=== PATIENT | male | born 1960 | race Caucasian/White ===

== ENCOUNTER → 2016-09-09 | Outpatient (CLI) | payer BC ==
[~2016-09-09] MED LIST: AMOXICILLIN 8751 TAB PO; CIPRO 500MG TA500 MG PO; LISINOPRIL HCTZ1 TAB PO; OMEPRAZOLE DR20 MG PO
== END ==
LOC: LAB 17:18
DX: L02.92 Furuncle, unspecified (principal); B95.7 Other staphylococcus as the cause of diseases classified elsewhere; B96.89 Other specified bacterial agents as the cause of diseases classified elsewhere

== ENCOUNTER 2017-10-01 15:33 | Emergency (ER) | payer BC ==
[~2017-10-01] VITALS: Ht 190.5 cm; Wt 161.8 kg
[~2017-10-01 15:33] MED LIST changes: -ADVAIR DISKUS1 DS2 IH; -FUROSEMIDE20 MG PO; -PROAIR HFA0.09 MG/AC IH; -SINGULAIR 110 MG/TAB PO
[2017-10-01] MEDS ORDERED: FUROSEMIDE20 MG PO (16:09)
[2017-10-01] MEDS ORDERED: ADVAIR DISKUS1 DS2 IH (16:10)
[2017-10-01] MEDS ORDERED: PROAIR HFA0.09 MG/AC IH (16:10)
[2017-10-01] MEDS ORDERED: SINGULAIR 110 MG/TAB PO (16:10)
[2017-10-01 16:38] LABS: HEMOGLOBIN 12.1 g/dL (13.5-18.0); MEAN CELL VOLUME 83 fl (78-100); MEAN CORPUSCULAR HEMOGLOBIN 27 pg (27-31); MEAN CORPUSCULAR HGB CONC 32 g/dL (33-37); MEAN PLATELET VOLUME 10.8 fl (7.4-10.4); PLATELET COUNT 123 K/mm3 (130-400); RED BLOOD COUNT 4.56 M/mm3 (4.20-5.60); RED CELL DISTRIBUTION WIDTH 18.2 % (11.5-14.5); WHITE BLOOD COUNT 6.4 K/mm3 (4.8-10.8)
[2017-10-01 16:43] LABS: ALBUMIN 3.9 g/dL (3.5-5.0); BUN/CREATININE RATIO 11.4 (6.0-26.0); CALCIUM 8.6 mg/dL (8.4-10.2); POTASSIUM 3.2 mmol/L (3.6-5.0); TOTAL BILIRUBIN 1.1 mg/dL (0.2-1.3); TOTAL PROTEIN 8.1 g/dL (6.3-8.2)
[2017-10-01 16:48] LABS: D-DIMER 0.51 mg/L FEU (0.15-0.50)
[2017-10-01 17:06] LABS: LYMPHOCYTE 15 % (20-51); MONOCYTE 16 % (3-10); NEUTROPHILS 68 % (42-75); TROPONIN-I < 0.03 ng/mL (0.00-0.06)
[2017-10-01 18:04] LABS: URINE APPEARANCE CLOUDY; URINE BILIRUBIN 1+ (NEGATIVE); URINE COLOR DK YELLOW; URINE GLUCOSE NEGATIVE (NEGATIVE); URINE KETONE 1+ (NEGATIVE); URINE NITRATE NEGATIVE (NEGATIVE); URINE PROTEIN(semi-quant) TRACE mg/dL (NEGATIVE); URINE UROBILINOGEN 8 mg/dL (NORMAL)
[2017-10-01 18:05] LABS: URINE BLOOD TRACE (NEGATIVE); URINE LEUKOCYTE ESTERASE TRACE (NEGATIVE); URINE MUCUS PRESENT (NOT PRESENT)
[2017-10-01 19:29] VITALS: BP 131/64
== END 2017-10-01 19:58 | disposition short-term general hospital (02) ==
LOC: ED 15:33
PROVIDERS: Physician Assistant
DX: I48.91 Unspecified atrial fibrillation (principal); J18.9 Pneumonia, unspecified organism; F10.20 Alcohol dependence, uncomplicated; K74.60 Unspecified cirrhosis of liver; J45.909 Unspecified asthma, uncomplicated; K21.9 Gastro-esophageal reflux disease without esophagitis; F17.210 Nicotine dependence, cigarettes, uncomplicated
CPT/HCPCS: J0696; J1650; J3490; J7030; J7050; Q9967

== ENCOUNTER → 2017-10-01 | Outpatient (CLI) | payer BC ==
[~2017-10-01] VITALS: Ht 190.5 cm; Wt 159.1 kg
[~2017-10-01] MED LIST changes: +ADVAIR DISKUS1 DS2 IH; +FUROSEMIDE20 MG PO; +PROAIR HFA0.09 MG/AC IH; +SINGULAIR 110 MG/TAB PO
[2017-10-01 15:33] VITALS: BP 117/73
== END ==
LOC: AMSURD 15:05
DX: R05 Cough (principal); I49.9 Cardiac arrhythmia, unspecified

== ENCOUNTER → 2017-10-22 | Outpatient (CLI) | payer BC ==
[2017-10-01 19:29] VITALS: BP 131/64
[~2017-10-22] MED LIST changes: +ADVAIR DISKUS1 DS2 IH; +FUROSEMIDE20 MG PO; +PROAIR HFA0.09 MG/AC IH; +SINGULAIR 110 MG/TAB PO
[2017-10-22 09:29] LABS: BUN/CREATININE RATIO 12.8 (6.0-26.0); CALCIUM 8.6 mg/dL (8.4-10.2); POTASSIUM 3.7 mmol/L (3.6-5.0)
[2017-10-22 09:36] LABS: EOS # 0.1 (0.04-0.40); HEMATOCRIT 36.7 % (42.0-52.0); HEMOGLOBIN 11.1 g/dL (13.5-18.0); LYMPH# 1.6 (1.50-4.00); MEAN CELL VOLUME 88 fl (78-100); MEAN CORPUSCULAR HEMOGLOBIN 27 pg (27-31); MEAN CORPUSCULAR HGB CONC 30 g/dL (33-37); MEAN PLATELET VOLUME 10.9 fl (7.4-10.4); MONO # 0.7 (0.20-0.80); NEU # 3.7 (1.40-6.50); PLATELET COUNT 136 K/mm3 (130-400); RED BLOOD COUNT 4.15 M/mm3 (4.20-5.60); RED CELL DISTRIBUTION WIDTH 19.7 % (11.5-14.5); WHITE BLOOD COUNT 6.1 K/mm3 (4.8-10.8)
[2017-10-22 10:34] LABS: DIGOXIN 0.8 ng/mL (0.8-2.0)
== END ==
LOC: RAD 08:47
PROVIDERS: Nurse Practitioner Family
DX: J18.9 Pneumonia, unspecified organism (principal); I48.91 Unspecified atrial fibrillation; K70.30 Alcoholic cirrhosis of liver without ascites; I10 Essential (primary) hypertension

== ENCOUNTER → 2017-10-23 | Outpatient (CLI) | payer BC ==
[2017-10-01 19:29] VITALS: BP 131/64
== END ==
LOC: LAB 09:31
PROVIDERS: Nurse Practitioner Family
DX: D64.9 Anemia, unspecified (principal); K74.60 Unspecified cirrhosis of liver; Z88.8 Allergy status to other drugs, medicaments and biological substances

== ENCOUNTER → 2017-10-26 | Outpatient (CLI) | payer BC ==
[2017-10-01 19:29] VITALS: BP 131/64
== END ==
LOC: LAB 07:48
DX: D64.9 Anemia, unspecified (principal); K70.30 Alcoholic cirrhosis of liver without ascites; Z88.8 Allergy status to other drugs, medicaments and biological substances

== ENCOUNTER → 2017-11-12 | Day surgery (SDC) | payer BC | LOC: MSO 07:08 | DX: K31.9 Disease of stomach and duodenum, unspecified (principal); D64.9 Anemia, unspecified; K70.30 Alcoholic cirrhosis of liver without ascites; K57.30 Diverticulosis of large intestine without perforation or abscess without bleeding; K63.5 Polyp of colon; K31.7 Polyp of stomach and duodenum; Z88.8 Allergy status to other drugs, medicaments and biological substances; G47.33 Obstructive sleep apnea (adult) (pediatric); F17.210 Nicotine dependence, cigarettes, uncomplicated; J45.909 Unspecified asthma, uncomplicated; F10.10 Alcohol abuse, uncomplicated; I10 Essential (primary) hypertension; I48.91 Unspecified atrial fibrillation | CPT/HCPCS: 00813; A4649; J2704; J3010; J7120 ==

== ENCOUNTER → 2017-11-26 | Outpatient (CLI) | payer BC ==
[2017-11-26 18:59] LABS: HEMATOCRIT 34.8 % (42.0-52.0); HEMOGLOBIN 11.1 g/dL (13.5-18.0); MEAN PLATELET VOLUME 11.3 fl (7.4-10.4); RED BLOOD COUNT 3.94 M/mm3 (4.20-5.60); RED CELL DISTRIBUTION WIDTH 19.4 % (11.5-14.5); WHITE BLOOD COUNT 6.5 K/mm3 (4.8-10.8)
[2017-11-26 19:19] LABS: ALBUMIN 3.6 g/dL (3.5-5.0); BUN/CREATININE RATIO 15.5 (6.0-26.0); CALCIUM 8.8 mg/dL (8.4-10.2); POTASSIUM 3.3 mmol/L (3.6-5.0); TOTAL BILIRUBIN 0.7 mg/dL (0.2-1.3); TOTAL PROTEIN 7.2 g/dL (6.3-8.2)
== END ==
LOC: LAB 17:05
PROVIDERS: Nurse Practitioner Family
DX: I48.0 Paroxysmal atrial fibrillation (principal); D64.9 Anemia, unspecified; I86.4 Gastric varices; K70.30 Alcoholic cirrhosis of liver without ascites; I10 Essential (primary) hypertension; Z86.39 Personal history of other endocrine, nutritional and metabolic disease; Z88.8 Allergy status to other drugs, medicaments and biological substances

== ENCOUNTER 2018-09-21 07:11 | Inpatient (IN) | payer BC ==
[~2018-09-21] VITALS: Ht 190.5 cm; Wt 172.4 kg
[2018-09-21] MEDS ORDERED: POTASSIUM CHLO20 ME4 PO (07:39)
[2018-09-21] MEDS ORDERED: VITAMIN C500 M6 PO (07:40)
[2018-09-21 08:06] LABS: HEMATOCRIT 37.8 % (42.0-52.0); HEMOGLOBIN 12.3 g/dL (13.5-18.0); MEAN CELL VOLUME 87 fl (78-100); MEAN CORPUSCULAR HEMOGLOBIN 28 pg (27-31); MEAN CORPUSCULAR HGB CONC 33 g/dL (33-37); MEAN PLATELET VOLUME 11.7 fl (7.4-10.4); PLATELET COUNT 94 K/mm3 (130-400); RED BLOOD COUNT 4.35 M/mm3 (4.20-5.60); RED CELL DISTRIBUTION WIDTH 18.2 % (11.5-14.5); WHITE BLOOD COUNT 6.4 K/mm3 (4.8-10.8)
[2018-09-21 08:13] LABS: ALBUMIN 3.9 g/dL (3.5-5.0); CALCIUM 8.5 mg/dL (8.4-10.2); POTASSIUM 3.3 mmol/L (3.6-5.0); TOTAL BILIRUBIN 1.7 mg/dL (0.2-1.3); TOTAL PROTEIN 7.6 g/dL (6.3-8.2)
[2018-09-21 08:37] LABS: LYMPHOCYTE 9 % (20-51); MONOCYTE 5 % (3-10); NEUTROPHILS 85 % (42-75)
[2018-09-21 08:59] LABS: D-DIMER 0.8 mg/L FEU (0.15-0.50)
[2018-09-21 10:29] VITALS: BP 130/68
--- NOTE | 2018-09-21 10:30 | NUR ---
pt admitted acute to room 206. Pt alert oriented and denies any pain. Labored breathing and complaints of SOB. Lungs coarse throughout. Pt does not tolerate nasal cannula well as he is a mouth breather. Pt has simple mask on at 4L remains 92%. Significant other goes home to get pt c pap machine.
[2018-09-21 12:08] VITALS: BP 143/62
--- NOTE | 2018-09-21 12:19 | NUR ---
Pt sitting up on edge of bed eating lunch. Pt switched to nasal cannula for meal pt SP02 remains mid 80s on 6L nasal cannula while sitting up eating. Heart rate in the 120s
--- NOTE | 2018-09-21 13:33 | NUR ---
pt oxygen increased to 6L via simple mask to keep SP02 92%. Dr Grace notfied and at bedside
[2018-09-21] MEDS ORDERED: SINGULAIR 110 MG/TAB PO (13:56)
[2018-09-21] MEDS ORDERED: DOXYCYCLINE MO100 M3 PO (13:57)
[2018-09-21] MEDS ORDERED: METOPROLOL TAR100 M1 PO (13:58)
[2018-09-21] MEDS ORDERED: TESSALON PERLE100 M1 PO (13:58)
[2018-09-21] MEDS ORDERED: LASIX80 M1 PO (13:59)
[2018-09-21 14:54] VITALS: BP 135/85
--- NOTE | 2018-09-21 15:20 | NUR ---
CARDIZEM DRIP RATE INCREASED TO 10 MG/HR
--- NOTE | 2018-09-21 17:00 | NUR ---
Pt started on bipap per Dr. Grace as pt remains 87% on 6L via simple mask. Pt SP02 increases to 91% on bipap. Pt tolerates well. Says he feels much better. Agrees to lay back and relax
--- NOTE | 2018-09-21 17:00 | NUR ---
Pt cardizem drip decreased 5mg/hr d/t blood pressures
--- NOTE | 2018-09-21 18:22 | NUR ---
Pt SP02 had been 87-91% wiht 6L bled into bipap. Dr. Grace orders to increase oxygen bleed in to 8L. No change noted in Sp02 with this increase
--- NOTE | 2018-09-21 19:55 | NUR ---
Cardizem drip decreased to 2.5mg due to heart rate 89 and B/P=118/72.
[2018-09-21 20:11] VITALS: BP 109/77
--- NOTE | 2018-09-21 22:38 | NUR ---
Cardizem drip stooped at this time pulse=74 and B/P= 111/82
[2018-09-22] VITALS (7 sets, daily range): BP systolic 97–135; BP diastolic 53–72
--- NOTE | 2018-09-22 02:27 | NUR ---
Assessed pt he denies any pain or discomfort. Rechecked B/P= 92/41, pt denies any dizziness.
--- NOTE | 2018-09-22 06:14 | NUR ---
Pt here for respitory failure. Pt is on BIPAP with IPAP=12, IPAP= 7 with 8L O2 attached to BIPAP. Pt has INT in Rt AC. IV Cardizem was stopped at 2238 pulse is able to maintaine at 70-80. Pt offeres no complints of pain during this shift. Pt rest in bed during the night. Does complaine about not being feed. Nursing staff attempted to let pt eat per doctor orders but pt was unable to maintaine O2 stats with out the BIPAP on.
--- NOTE | 2018-09-22 07:00 | NUR ---
Report received from YESENIA Menjivar.
--- NOTE | 2018-09-22 08:00 | NUR ---
Pt awake and wanting breakfast. Bipap off as pt would like to eat. 02 at 6 L/NC - sp02 88-92%. Pt sitting on side of bed - Desats to 80's with activity. Lungs clear at this time but diminished. No wheezes heard at this time. Call light in reach. Denies any pain. INT intact right AC. Resp labored w/ exertion.
--- NOTE | 2018-09-22 08:30 | NUR ---
Sats do desat to 86% w/ talking and eating but return to low 90's in a short time w/ rest from activity. Will continue to monitor. Pt verbalizes understanding to keep sats around 92% or better on the 6L/NC - encouraged to breath throught nose when using nasal cannula.
[2018-09-22 08:41] LABS: HEMOGLOBIN 11.6 g/dL (13.5-18.0); MEAN CELL VOLUME 88 fl (78-100); MEAN CORPUSCULAR HEMOGLOBIN 28 pg (27-31); MEAN CORPUSCULAR HGB CONC 32 g/dL (33-37); MEAN PLATELET VOLUME 11.6 fl (7.4-10.4); PLATELET COUNT 108 K/mm3 (130-400); RED CELL DISTRIBUTION WIDTH 17.6 % (11.5-14.5); WHITE BLOOD COUNT 8.5 K/mm3 (4.8-10.8)
[2018-09-22 08:46] LABS: CALCIUM 8.4 mg/dL (8.4-10.2); POTASSIUM 3.7 mmol/L (3.6-5.0)
[2018-09-22 09:17] LABS: LYMPHOCYTE 4 % (20-51); NEUTROPHILS 95 % (42-75)
[2018-09-22 09:18] LABS: MONOCYTE 1 % (3-10)
--- NOTE | 2018-09-22 09:45 | NUR ---
After breathing treatments heard expiratory wheezes bilaterally. Encouraged to use IS and importance explained - after instruction pt demonstrates IS use correctly. Pt continues to sit on side of bed. BIPAP to be replaced if pt decides to lie down or sp02 does not maintain - pt verbalizes understanding. States is coughing up white sputum.
--- NOTE | 2018-09-22 10:30 | NUR ---
Significant other is here. Pt continues 6 L/NC w/ sp02 88-92%. Pt's sats to 78% without oxygen as was changing shirt and reapplying tubing. Notable SOB with this. 02 reapplied at 6 L/NC and up to 91-92% in short time. Washes off with bath wipes instead of shower today.
--- NOTE | 2018-09-22 11:30 | NUR ---
Dr. Grace updated on sp02 on 6L/NC - no new orders. Monitor shows RSR w/ pac much of the time today. Occasional atrial fib at times but difficult to confirm w/ pacs at times. Pt remains on side of bed. Dr. Grace notified of tea colored/gene urine this am.
--- NOTE | 2018-09-22 14:00 | NUR ---
Pt brushes teeth at bedside and walks around bed to recliner at bedside w/ 02 at 6 L/NC w/ SP02 dropping to 73%. Pt back up to 90-92% w/ rest and breathing in through nose. Offered BIPAP and pt refuses. Has visitor.
--- NOTE | 2018-09-22 14:30 | NUR ---
Dr. Grace aware that eliquis dose given last night and no scheduled dose for this am. No new orders at this time.
--- NOTE | 2018-09-22 14:35 | NUR ---
To XRAY per w/c / at 6L/NC.
--- NOTE | 2018-09-22 15:37 | NUR ---
Sitting in chair at bedside watching TV. Sp02 91-93% w/ 92 at 6 L/NC.
--- NOTE | 2018-09-22 17:48 | NUR ---
Dr. Grace notified of significant other's concern for not much response from lasix as usually has at home. Pt continues oxygen at 6 L/nc this shift. Monitor continues to show rsr w/ feq pac's rates 80-90's. Pt has not taken a nap since rising this am. Discussed BIPAP use tonight with sleeping (uses cpap at home). C/O sore throat - appears irritated and has had sinus drainage. Order for cepacol obtained and lozenge given to pt.
--- NOTE | 2018-09-22 19:39 | NUR ---
Report received from Ashley PATTERSON. Up in chair with oxygen in place at 6L/NC. SAO2 88-90% per NC. RR non-labored at this time. Labored with exertion. Lungs coarse with expiratory wheezes all pre[place]. States has a sore throat, utilizing cepacol lozenges and request more. Assessment completed. Denies pain, except throat.
--- NOTE | 2018-09-23 00:02 | NUR ---
Oxygen levels dipping down to 87-88% on 6L bleed in with BIPAP. Oxygen increase to 8L/bleed in. SAO2 90-93%.
[2018-09-23 03:15] VITALS: BP 101/55
--- NOTE | 2018-09-23 04:24 | NUR ---
Has been resting well past 3 1/2 hours. SAO2 maintained at 93% while asleep with BIPAP in place and oxgyen bled in at 8L. Desats down to mid-80s with activity or manipulation of mask.
[2018-09-23 06:21] VITALS: BP 103/50
--- NOTE | 2018-09-23 07:28 | NUR ---
Report to Shoshana PATTERSON.
[2018-09-23 07:32] LABS: ALBUMIN 3.3 g/dL (3.5-5.0); CALCIUM 8.5 mg/dL (8.4-10.2); POTASSIUM 3.8 mmol/L (3.6-5.0); TOTAL BILIRUBIN 0.6 mg/dL (0.2-1.3); TOTAL PROTEIN 6.9 g/dL (6.3-8.2)
[2018-09-23 07:39] LABS: HEMATOCRIT 35.8 % (42.0-52.0); HEMOGLOBIN 11.1 g/dL (13.5-18.0); MEAN CELL VOLUME 88 fl (78-100); MEAN CORPUSCULAR HEMOGLOBIN 27 pg (27-31); MEAN CORPUSCULAR HGB CONC 31 g/dL (33-37); PLATELET COUNT 115 K/mm3 (130-400); RED BLOOD COUNT 4.07 M/mm3 (4.20-5.60); RED CELL DISTRIBUTION WIDTH 17.5 % (11.5-14.5)
[2018-09-23 08:01] LABS: MEAN PLATELET VOLUME 12.4 fl (7.4-10.4)
[2018-09-23 08:51] LABS: BAND 1 % (0-10); LYMPHOCYTE 4 % (20-51); MONOCYTE 2 % (3-10); NEUTROPHILS 93 % (42-75)
[2018-09-23 11:56] VITALS: BP 118/70
[2018-09-23 15:50] VITALS: BP 111/71
[2018-09-23 20:14] VITALS: BP 121/73
--- NOTE | 2018-09-23 20:50 | NUR ---
Report received from Chantel PATTERSON. Up in recliner. Oxygen in place at 6L/NC. SAO2 96-97%. Denies shortness of breath at rest but continue with SOB with exertion. States occasional NPC.HR 90's regular. Lung sounds improved from last nights assessment. No wheezes auscultated and better airation noted. Diminished in bases. INT patent to R AC. Flushed easily with NS. States no BM as of yet. Wants laxative tomorrow if no movement. HS medications and nebulizer tx administerd. Denies wants or needs.
[2018-09-23 23:35] VITALS: BP 128/70
--- NOTE | 2018-09-24 00:01 | NUR ---
SAO2 88-92% with inital placement of BIPAP. Once patient settles into sleep SAO2 steady 94%. BIPAP with oxgyen bled in a 6L.
[2018-09-24 02:49] VITALS: BP 116/80
--- NOTE | 2018-09-24 03:35 | NUR ---
SAO2 had remained 93-95% with BIPAP on with 6L bleed in oxgyen. Occasional brief dips into high 80's with repositioning while sleeping.
--- NOTE | 2018-09-24 06:17 | NUR ---
Awake for the day. BIPAP off. Oxygen applied at 6L/NC. SAO2 92%.
[2018-09-24 06:33] VITALS: BP 133/77
--- NOTE | 2018-09-24 06:56 | NUR ---
Takes oxygen out of nose and puts in mouth during trying to blow his nose. SAO2 down to 83%.
--- NOTE | 2018-09-24 07:12 | NUR ---
Dr. Castaneda at bedside.
--- NOTE | 2018-09-24 07:12 | NUR ---
Dr. Castaneda in to round on patient.
--- NOTE | 2018-09-24 07:27 | NUR ---
Report to Chantel PATTERSON.
[2018-09-24 11:00] VITALS: BP 139/81
[2018-09-24 15:00] VITALS: BP 142/83
--- NOTE | 2018-09-24 15:30 | NUR ---
Patient alert and oriented. Denies pain. Has intermittent productive cough. Has small amount of white sputum per patient. Oxygen saturations in mid 90's on oxygen at 6 liters via nasal cannula. Oxygen decreased to 5 liters. Oxygen saturations >90% at rest. Decreased to 85% with minimal exertion on oxygen at 5 liters via nasal cannula. Patient reports no bowel movement since 09/21/18. Bowel sounds hypoactive x4. Drank two large cups of prune juice this morning. Served chilled per patient request. Denies need for PRN suppository at this time. Denies needs or questions. Fall precautions in place.
--- NOTE | 2018-09-24 18:30 | NUR ---
Patient ambulated in hallway >150 feet. Oxygen on 6 liters via nasal cannula. Had patient stop and rest twice during ambulation due to decreasing oxygen saturations to mid-lower 80's. Patient wanted to continue with no rest periods. Denies dizziness or shortness of breath with ambulation. States he "couldn't tell" his oxygen saturations were low. Denies symptoms. Steady gait noted. Returns to recliner. Oxygen decreased to 5 liters via nasal cannula. Denies pain or needs. Fall precautions in place.
[2018-09-24 18:54] VITALS: BP 150/81
[2018-09-24 23:10] VITALS: BP 149/78
[2018-09-25 03:20] VITALS: BP 145/72
--- NOTE | 2018-09-25 05:30 | NUR ---
Patient is awake this am, BIPAP removed and switched back to oxygen at 5L/NC at this time, states he slept well last night, wore the BIPAP nonstop for 7 hours without difficulty. Is requesting a cup of coffee, provided. Sitting up in bed watching tv, call light within reach, bed alarm on, denies any further needs/complaints at this time, monitor shows normal sinus rhythm, sats 92-93% on the oxygen.
[2018-09-25 06:03] LABS: CALCIUM 8.4 mg/dL (8.4-10.2); POTASSIUM 4.1 mmol/L (3.6-5.0)
[2018-09-25 06:06] VITALS: BP 148/73
--- NOTE | 2018-09-25 07:15 | NUR ---
Bedside shift report given to Janet at this time, patient sitting up in bed watching tv with oxygen on per nasal cannula @ 5L/NC, call light within reach, bed alarm on, side rails up x 2, patient denies any needs/complaints at this time
[2018-09-25 11:09] VITALS: BP 143/84
[2018-09-25 15:00] VITALS: BP 153/76
[2018-09-25 15:47] LABS: HEMATOCRIT 37.9 % (42.0-52.0); HEMOGLOBIN 11.7 g/dL (13.5-18.0); MEAN CELL VOLUME 89 fl (78-100); MEAN CORPUSCULAR HEMOGLOBIN 27 pg (27-31); MEAN CORPUSCULAR HGB CONC 31 g/dL (33-37); MEAN PLATELET VOLUME 11.9 fl (7.4-10.4); PLATELET COUNT 124 K/mm3 (130-400); RED BLOOD COUNT 4.27 M/mm3 (4.20-5.60); RED CELL DISTRIBUTION WIDTH 17.6 % (11.5-14.5); WHITE BLOOD COUNT 7.9 K/mm3 (4.8-10.8)
[2018-09-25 16:03] LABS: CALCIUM 8.4 mg/dL (8.4-10.2); POTASSIUM 4.5 mmol/L (3.6-5.0)
[2018-09-25 16:12] LABS: LYMPHOCYTE 10 % (20-51); MONOCYTE 6 % (3-10); NEUTROPHILS 84 % (42-75)
--- NOTE | 2018-09-25 16:48 | NUR ---
PT DESATS TO 88% ON 6L 02 VIA NC WHILE IN THE RESTROOM SITTING ON THE COMMODE, ASSISTED BACK TO CHAIR SAFELY, CURRENTLY O2 SATURATION IS 90% ON 6L NC WHILE RESTING
--- NOTE | 2018-09-25 16:53 | NUR ---
PT WALKS TO AND FROM RESTROOM AT THIS TIME, UPON GETTING BACK INTO CHAIR AND STARTING BREATHING TX PT'S O2 SATURATION IS 86% ON 6L O2 VIA NC
--- NOTE | 2018-09-25 17:30 | NUR ---
PER PATIENT HE DOES NOT WANT TO GO HOME ON OXYGEN AND WOULD LIKE TO CONTINUE TO STAY UNTIL NO LONGER NEEDS OXYGEN. PATIENT AGREES TO DECREASE OXYGEN SLOWLY TO SEE HOW HE TOLERATES. PATIENT HAD ANOTHER CHEST XRAY TODAY; RESULTS PENDING. PATIENT TOLERATING DECREASE TO 4L NC THIS AFTERNOON WITH SATS 92%. PATIENT AMBULATORY TO BATHROOM AND UP AROUND ROOM WITH STANDBY ASSIST. PATIENT WOULD LIKE TO WALK THIS EVENING AND CONTINUE TO MOVE TO GET BOWELS MOVING. PATIENT GIVEN A SUPPOSITORY AND WOULD LIKE TO START MIRALAX IN THE AM. SMALL BM NOTED AND CHARTED THIS AFTERNOON.
[2018-09-25 18:11] VITALS: BP 131/72
--- NOTE | 2018-09-25 20:00 | NUR ---
Patient ambulates in the halls with nurse, Standby assist with gait belt, oxygen on at 4L/NC, sats monitored throughout walk, patient was able to walk all the way around the loop with 3 stops to rest and take some deep breaths, sats never dropped below 87% during ambulation, gait steady, patient able to converse with nurse most of the time, ambulates back to room and placed back on wall oxygen, chair alarm activated and call light within reach, patient denies any needs/complaints at this time
[2018-09-25 22:44] VITALS: BP 136/74
[2018-09-26 02:40] VITALS: BP 109/70
[2018-09-26 06:25] VITALS: BP 129/77
--- NOTE | 2018-09-26 06:30 | NUR ---
Patient wakes up, ambulates to the bathroom and back to bed with contact guard assist, oxygen switched from BIPAP to nasal cannula at 4L, he wore the BIPAP for a full 8 hours last night without difficulty, resting quietly in bed at this time, side rails up x 2, call light within reach, bed alarm on
--- NOTE | 2018-09-26 09:49 | NUR ---
Pt sitting up in chair. Is A&O, denies pain. O2 at 4L via NC. INT to R hand, causes pain immediately upon flushing then flushes and infuses without issue. Lungs CTA, pt does have intermittent productive cough, especially after bx tx. Noted to have generalized edema through all extremeties with 2+ to BLE which pt reports being his "normal", once up for the day.
[2018-09-26 11:28] VITALS: BP 108/70
--- NOTE | 2018-09-26 13:12 | NUR ---
PT'S O2 SATURATION BETWEEN 88%-89% WITH AMBULATION IN THE HALLWAYS AT THIS TIME ON 4L O2 VIA NC
--- NOTE | 2018-09-26 15:00 | NUR ---
Pt lying in bed, resting. HOB 45 degrees. Turn off O2. Desats to 83% RA but does recover in waves back up to 93%. Leave off x 10 minutes, then return to 3L O2 via NC. Pt maintaining 92%.
[2018-09-26 15:15] VITALS: BP 115/68
[2018-09-26 18:42] VITALS: BP 119/73
--- NOTE | 2018-09-26 18:50 | NUR ---
Pt refuses HH services and OP therapy at this time. He accepts being set up w/ Home O2 and chooses [facility], records are received by [facility] and they will set up home O2 and provide an O2 bleeder for his current C-PAP machine. Pt will also go home w/ mask that he has been using in hospital.
--- NOTE | 2018-09-26 19:30 | NUR ---
Report received from Shoshana PATTERSON. Up in recliner with visitor at bedside. A/O x4. Oxygen in place at 3L/NC. SAO2 93%. Denies pain. Denies Shortness of breath at rest. States he "coughed up a little brownish phelgm". INT patent to R hand. Assessment completed. Denies wants or needs at this time.
[2018-09-26 23:16] VITALS: BP 136/71
--- NOTE | 2018-09-27 01:38 | NUR ---
Oxygen levels have remained 93-94% on 4L bleed in to CPAP.
[2018-09-27 03:07] VITALS: BP 133/71
[2018-09-27 06:25] VITALS: BP 122/67
[2018-09-27 06:50] LABS: HEMATOCRIT 36.5 % (42.0-52.0); HEMOGLOBIN 11.4 g/dL (13.5-18.0); MEAN CELL VOLUME 88 fl (78-100); MEAN CORPUSCULAR HEMOGLOBIN 28 pg (27-31); MEAN CORPUSCULAR HGB CONC 31 g/dL (33-37); MEAN PLATELET VOLUME 11.5 fl (7.4-10.4); PLATELET COUNT 152 K/mm3 (130-400); RED BLOOD COUNT 4.15 M/mm3 (4.20-5.60); RED CELL DISTRIBUTION WIDTH 17.7 % (11.5-14.5); WHITE BLOOD COUNT 9.2 K/mm3 (4.8-10.8)
--- NOTE | 2018-09-27 06:52 | NUR ---
Report to Anh PATTERSON
[2018-09-27 07:06] LABS: CALCIUM 8.2 mg/dL (8.4-10.2); POTASSIUM 4.4 mmol/L (3.6-5.0)
[2018-09-27] MEDS ORDERED: IPRATROPIUM BROM3 M1 IH (07:34)
[2018-09-27] MEDS ORDERED: PREDNISONE10 MG PO (07:36)
[2018-09-27] MEDS ORDERED: CEFDINIR300 MG PO (07:38)
[2018-09-27 07:39] LABS: LYMPHOCYTE 7 % (20-51); MONOCYTE 7 % (3-10); NEUTROPHILS 86 % (42-75)
[2018-09-27] MEDS ORDERED: DOXYCYCLINE MO100 M3 PO (07:40)
--- NOTE | 2018-09-27 08:12 | NUR ---
REPORT GIVEN TO KAYCEE Pratt RN.
--- NOTE | 2018-09-27 09:17 | NUR ---
Discharge instructions reviewed with pt and girl friend at bedside. Both verbalize understanding. Significant other Bethany reports that they already have some doxcycline and breathing treatments at home and they do not need them. Both encouraged to check prescriptions to ensure it is actually the same medications and doses and that they will have enough. Pt leaves with home oxygen tank and supplies for oxygen as well as bipap mask and connections for oxygen adapters to his c pap machine. Eduaction provided on importance of oxygen and following medications regimen as ordered. Both verbalize understanding. Assisted out in wheel chair at this time
== END 2018-09-27 09:17 | disposition home or self-care (01) | DRG 193 ==
LOC: ED 07:11 → MED/SURG 09:42
PROVIDERS: Internal Medicine; Physician Assistant; ADMIT Family Medicine
DX: J18.9 Pneumonia, unspecified organism (principal); I50.23 Acute on chronic systolic (congestive) heart failure; Z68.42 Body mass index [BMI] 45.0-49.9, adult; K70.30 Alcoholic cirrhosis of liver without ascites; I48.91 Unspecified atrial fibrillation; K21.9 Gastro-esophageal reflux disease without esophagitis; E66.01 Morbid (severe) obesity due to excess calories; F17.210 Nicotine dependence, cigarettes, uncomplicated; E87.6 Hypokalemia; F10.10 Alcohol abuse, uncomplicated; G47.33 Obstructive sleep apnea (adult) (pediatric)
CPT/HCPCS: A4216; J0696; J1650; J1940; J2930; J3490; J7050

== ENCOUNTER → 2018-10-08 | Outpatient (CLI) | payer BC ==
[2018-09-27 06:25] VITALS: BP 122/67
[~2018-10-08] MED LIST changes: +CEFDINIR300 MG PO; +DOXYCYCLINE MO100 M3 PO; +IPRATROPIUM BROM3 M1 IH; +LASIX80 M1 PO; +METOPROLOL TAR100 M1 PO; +POTASSIUM CHLO20 ME4 PO; +PREDNISONE10 MG PO; +TESSALON PERLE100 M1 PO; +VITAMIN C500 M6 PO
[2018-10-08 11:47] LABS: EOS # 0.1 (0.04-0.40); EOS % 1.3 % (0.0-4.0); HEMATOCRIT 42.8 % (42.0-52.0); HEMOGLOBIN 13.4 g/dL (13.5-18.0); LYMPH# 1.9 (1.50-4.00); MEAN CELL VOLUME 90 fl (78-100); MEAN CORPUSCULAR HEMOGLOBIN 28 pg (27-31); MEAN CORPUSCULAR HGB CONC 31 g/dL (33-37); MONO # 0.9 (0.20-0.80); NEU # 6.6 (1.40-6.50); PLATELET COUNT 134 K/mm3 (130-400); RED BLOOD COUNT 4.78 M/mm3 (4.20-5.60); RED CELL DISTRIBUTION WIDTH 19.9 % (11.5-14.5); WHITE BLOOD COUNT 9.7 K/mm3 (4.8-10.8)
[2018-10-08 12:02] LABS: ALBUMIN 3.8 g/dL (3.5-5.0); CALCIUM 8.9 mg/dL (8.4-10.2); POTASSIUM 3.8 mmol/L (3.6-5.0); TOTAL BILIRUBIN 1.9 mg/dL (0.2-1.3); TOTAL PROTEIN 7.3 g/dL (6.3-8.2)
== END ==
LOC: LAB 11:30
PROVIDERS: Family Medicine
DX: E87.6 Hypokalemia (principal); D64.9 Anemia, unspecified

== ENCOUNTER → 2019-02-25 | Outpatient (CLI) | payer BC ==
[2019-02-25 15:15] LABS: PROTHROMBIN TIME 12.1 SECONDS (9.0-12.0)
== END ==
LOC: LAB 14:44
PROVIDERS: Physician Assistant
DX: K74.60 Unspecified cirrhosis of liver (principal); F10.10 Alcohol abuse, uncomplicated

== ENCOUNTER → 2019-08-04 | Outpatient (CLI) | payer BC | LOC: RAD 15:55 | DX: M77.32 Calcaneal spur, left foot (principal) ==

== ENCOUNTER 2020-08-13 10:05 | Inpatient (IN) | payer BC ==
[~2020-08-13] VITALS: Ht 190.5 cm; Wt 174.0 kg
[2020-08-13 11:32] LABS: HEMATOCRIT 39.8 % (42.0-52.0); HEMOGLOBIN 13.5 g/dL (13.5-18.0); MEAN CELL VOLUME 104 fl (78-100); MEAN CORPUSCULAR HEMOGLOBIN 35 pg (27-31); MEAN CORPUSCULAR HGB CONC 34 g/dL (33-37); MEAN PLATELET VOLUME 11.5 fl (7.4-10.4); PLATELET COUNT 70 K/mm3 (130-400); RED BLOOD COUNT 3.82 M/mm3 (4.20-5.60); RED CELL DISTRIBUTION WIDTH 12.8 % (11.5-14.5); WHITE BLOOD COUNT 5.1 K/mm3 (4.8-10.8)
[2020-08-13 11:43] LABS: ALBUMIN 3.1 g/dL (3.5-5.0); POTASSIUM 3.5 mmol/L (3.5-5.1); SODIUM 143 mmol/L (136-145)
[2020-08-13 11:44] LABS: CALCIUM 8.8 mg/dL (8.3-10.5)
[2020-08-13 11:45] LABS: GLUCOSE 101 mg/dL (75-110); TOTAL PROTEIN 7.2 g/dL (6.4-8.3)
[2020-08-13 11:46] LABS: CARBON DIOXIDE 23 mmol/L (22-29)
[2020-08-13 11:51] LABS: AST-SGOT 36 U/L (5-34)
[2020-08-13 11:52] LABS: ALT/SGPT 31 U/L (0-55)
[2020-08-13 11:54] LABS: ALCOHOL IN-HOUSE < 10 mg/dL (<10)
[2020-08-13 12:20] LABS: LYMPHOCYTE 27 % (20-51); MONOCYTE 12 % (3-10); NEUTROPHILS 58 % (42-75)
[2020-08-13 12:51] LABS: URINE APPEARANCE CLEAR; URINE BILIRUBIN NEGATIVE (NEGATIVE); URINE BLOOD NEGATIVE (NEGATIVE); URINE COLOR YELLOW; URINE GLUCOSE NEGATIVE (NEGATIVE); URINE KETONE NEGATIVE (NEGATIVE); URINE LEUKOCYTE ESTERASE NEGATIVE (NEGATIVE); URINE NITRATE NEGATIVE (NEGATIVE); URINE PROTEIN(semi-quant) NEGATIVE (NEGATIVE); URINE UROBILINOGEN NORMAL (NORMAL); URINE WBC 0-1 /hpf (0-3)
[2020-08-13 14:09] VITALS: BP 133/91
[2020-08-13 14:11] VITALS: BP 133/91
[2020-08-13 17:10] VITALS: BP 121/73
[2020-08-13 21:45] VITALS: BP 139/81
[2020-08-14 02:00] VITALS: BP 121/70; BP 96/61
[2020-08-14 05:40] VITALS: BP 139/92
[2020-08-14 07:56] LABS: HEMATOCRIT 36.7 % (42.0-52.0); HEMOGLOBIN 12.2 g/dL (13.5-18.0); MEAN CELL VOLUME 106 fl (78-100); MEAN CORPUSCULAR HEMOGLOBIN 35 pg (27-31); MEAN CORPUSCULAR HGB CONC 33 g/dL (33-37); MEAN PLATELET VOLUME 11.2 fl (7.4-10.4); PLATELET COUNT 56 K/mm3 (130-400); RED BLOOD COUNT 3.47 M/mm3 (4.20-5.60); RED CELL DISTRIBUTION WIDTH 12.7 % (11.5-14.5); WHITE BLOOD COUNT 3.7 K/mm3 (4.8-10.8)
[2020-08-14 08:04] LABS: NEUTROPHILS 45 % (42-75)
[2020-08-14 08:05] LABS: ALBUMIN 2.6 g/dL (3.5-5.0); LYMPHOCYTE 38 % (20-51); MONOCYTE 13 % (3-10); POTASSIUM 3.8 mmol/L (3.5-5.1)
[2020-08-14 08:06] LABS: CALCIUM 8.3 mg/dL (8.3-10.5)
[2020-08-14 09:51] VITALS: BP 115/62
[2020-08-14 14:05] VITALS: BP 114/70
[2020-08-14 17:12] VITALS: BP 121/76
[2020-08-14 18:15] LABS: FOLATE (FOLIC ACID) 7.3 ng/mL (7.0-31.4)
[2020-08-14 23:07] VITALS: BP 121/77
[2020-08-15 02:00] VITALS: BP 119/62
[2020-08-15 06:06] VITALS: BP 113/60
[2020-08-15 09:54] VITALS: BP 143/75
[2020-08-15] MEDS ORDERED: LACTULOSE SYRUP1 ML PO (10:00)
[2020-08-15] MEDS ORDERED: MULTIPLE VITAMI1 TA1 PO (10:01)
[2020-08-15] MEDS ORDERED: VITAMIN B-150 M1 PO (10:01)
== END 2020-08-15 11:00 | disposition home or self-care (01) | DRG 442 ==
LOC: ED 10:05 → MED/SURG 13:16
PROVIDERS: ADMIT Physician Assistant
DX: K72.90 Hepatic failure, unspecified without coma (principal); Z68.42 Body mass index [BMI] 45.0-49.9, adult; K70.30 Alcoholic cirrhosis of liver without ascites; E66.9 Obesity, unspecified; I48.91 Unspecified atrial fibrillation; E66.01 Morbid (severe) obesity due to excess calories; G47.30 Sleep apnea, unspecified; K59.00 Constipation, unspecified; Z20.822 Contact with and (suspected) exposure to COVID-19; F17.210 Nicotine dependence, cigarettes, uncomplicated; Z88.8 Allergy status to other drugs, medicaments and biological substances
CPT/HCPCS: J1650; J3411; J3490; J7030

== ENCOUNTER → 2020-08-23 | Outpatient (CLI) | payer BC ==
[2020-08-15 09:54] VITALS: BP 143/75
[~2020-08-23] MED LIST changes: +LACTULOSE SYRUP1 ML PO; +MULTIPLE VITAMI1 TA1 PO; +VITAMIN B-150 M1 PO
[2020-08-23 10:30] LABS: HEMATOCRIT 36.9 % (42.0-52.0); HEMOGLOBIN 12.1 g/dL (13.5-18.0); MEAN CELL VOLUME 106 fl (78-100); MEAN CORPUSCULAR HEMOGLOBIN 35 pg (27-31); MEAN CORPUSCULAR HGB CONC 33 g/dL (33-37); MEAN PLATELET VOLUME 10.6 fl (7.4-10.4); PLATELET COUNT 69 K/mm3 (130-400); RED BLOOD COUNT 3.49 M/mm3 (4.20-5.60); RED CELL DISTRIBUTION WIDTH 12.9 % (11.5-14.5); WHITE BLOOD COUNT 4.8 K/mm3 (4.8-10.8)
[2020-08-23 10:50] LABS: ALBUMIN 2.9 g/dL (3.5-5.0); POTASSIUM 3.7 mmol/L (3.5-5.1)
[2020-08-23 10:51] LABS: CALCIUM 8.4 mg/dL (8.3-10.5)
[2020-08-23 10:53] LABS: TOTAL PROTEIN 6.5 g/dL (6.4-8.3)
[2020-08-23 10:55] LABS: TOTAL BILIRUBIN 1.6 mg/dL (0.2-1.2)
[2020-08-23 11:19] LABS: LYMPHOCYTE 28 % (20-51); MONOCYTE 17 % (3-10); NEUTROPHILS 53 % (42-75)
== END ==
LOC: LAB 10:14
PROVIDERS: Family Medicine
DX: G93.41 Metabolic encephalopathy (principal); E78.5 Hyperlipidemia, unspecified; R73.9 Hyperglycemia, unspecified

== ENCOUNTER → 2020-09-20 | Outpatient (CLI) | payer BC ==
[2020-09-20 11:03] LABS: ALBUMIN 2.6 g/dL (3.4-4.8); POTASSIUM 4.2 mmol/L (3.5-5.1)
[2020-09-20 11:04] LABS: CALCIUM 8.4 mg/dL (8.3-10.5)
[2020-09-20 11:05] LABS: TOTAL PROTEIN 6.2 g/dL (6.2-8.1)
[2020-09-20 11:07] LABS: TOTAL BILIRUBIN 1.5 mg/dL (0.2-1.2)
[2020-09-20 23:42] LABS: TESTOSTERONE 338 ng/dL (221-716)
== END ==
LOC: LAB 10:38
PROVIDERS: Family Medicine
DX: K70.30 Alcoholic cirrhosis of liver without ascites (principal); N52.9 Male erectile dysfunction, unspecified

== ENCOUNTER → 2020-09-21 | Outpatient (CLI) | payer BC ==
[~2020-09-21] MED LIST changes: +CEPHALEXIN500 M1 PO; +ELIQUIS5 MG PO; +ENULOSE10 GM/152 PO; +HYGROTON 2525 MG/TAB PO; +INDERAL 10MG10 MG PO; +K-TAB20 MEQ PO; +METOLAZONE5 MG PO; +NAPROXEN500 MG PO; +PANTOPRAZOLE SO40 MG PO; +PRILOSEC 20MG20 MG PO; +TORSEMIDE20 M1 PO; +WELLBUTRIN XL150 M2 PO; +[UNRECOGNIZED DRUG - OTHER] PO
== END ==
LOC: RAD 09:42
DX: M25.551 Pain in right hip (principal); Z96.641 Presence of right artificial hip joint

== ENCOUNTER → 2020-12-22 | Outpatient (CLI) | payer BC ==
[2020-12-22 08:17] LABS: HEMATOCRIT 20.9 % (42.0-52.0); MEAN CELL VOLUME 103 fl (78-100); MEAN CORPUSCULAR HEMOGLOBIN 31 pg (27-31); MEAN CORPUSCULAR HGB CONC 30 g/dL (33-37); MEAN PLATELET VOLUME 10.4 fl (7.4-10.4); PLATELET COUNT 83 K/mm3 (130-400); RED CELL DISTRIBUTION WIDTH 14.4 % (11.5-14.5); WHITE BLOOD COUNT 4.9 K/mm3 (4.8-10.8)
[2020-12-22 08:24] LABS: ALBUMIN 2.7 g/dL (3.4-4.8); POTASSIUM 4.1 mmol/L (3.5-5.1)
[2020-12-22 08:25] LABS: CALCIUM 8.3 mg/dL (8.3-10.5)
[2020-12-22 08:26] LABS: TOTAL PROTEIN 6.6 g/dL (6.2-8.1)
[2020-12-22 08:35] LABS: HEMOGLOBIN 6.3 g/dL (13.5-18.0); LYMPHOCYTE 30 % (20-51); MONOCYTE 10 % (3-10); NEUTROPHILS 52 % (42-75); OVALOCYTES 1+; RED BLOOD COUNT 2.04 M/mm3 (4.20-5.60)
== END ==
LOC: LAB 07:59
DX: I48.0 Paroxysmal atrial fibrillation (principal); I10 Essential (primary) hypertension; G47.33 Obstructive sleep apnea (adult) (pediatric); Z72.0 Tobacco use

== ENCOUNTER 2020-12-29 12:24 | Emergency (ER) | payer BC ==
[~2020-12-29 12:24] MED LIST changes: -CEPHALEXIN500 M1 PO; -ELIQUIS5 MG PO; -ENULOSE10 GM/152 PO; -HYGROTON 2525 MG/TAB PO; -INDERAL 10MG10 MG PO; -K-TAB20 MEQ PO; -METOLAZONE5 MG PO; -NAPROXEN500 MG PO; -PANTOPRAZOLE SO40 MG PO; -PRILOSEC 20MG20 MG PO; -TORSEMIDE20 M1 PO; -WELLBUTRIN XL150 M2 PO; -[UNRECOGNIZED DRUG - OTHER] PO
[2020-12-29 13:00] LABS: BASO # 0.02 (0.02-0.10); EOS # 0.24 (0.04-0.40); EOS % 5.2 % (0.0-4.0); HEMATOCRIT 28.4 % (42.0-52.0); LYMPH# 1.22 (1.50-4.00); MEAN CELL VOLUME 96 fl (78-100); MEAN CORPUSCULAR HEMOGLOBIN 30 pg (27-31); MEAN CORPUSCULAR HGB CONC 32 g/dL (33-37); MEAN PLATELET VOLUME 10.8 fl (7.4-10.4); MONO # 0.72 (0.20-0.80); PLATELET COUNT 98 K/mm3 (130-400); RED BLOOD COUNT 2.96 M/mm3 (4.20-5.60); RED CELL DISTRIBUTION WIDTH 15.7 % (11.5-14.5); WHITE BLOOD COUNT 4.6 K/mm3 (4.8-10.8)
[2020-12-29 13:04] LABS: ALBUMIN 3.1 g/dL (3.4-4.8); SODIUM 140 mmol/L (136-145)
[2020-12-29 13:05] LABS: CALCIUM 8.7 mg/dL (8.3-10.5)
[2020-12-29 13:07] LABS: GLUCOSE 116 mg/dL (75-110); TOTAL PROTEIN 7.6 g/dL (6.2-8.1)
[2020-12-29 13:08] LABS: CARBON DIOXIDE 28 mmol/L (23-31); TOTAL BILIRUBIN 1.9 mg/dL (0.2-1.2)
[2020-12-29 13:12] LABS: AST-SGOT 17 U/L (5-34)
[2020-12-29 13:13] LABS: ALT/SGPT 11 U/L (0-55)
[2020-12-29 13:21] LABS: ALCOHOL IN-HOUSE < 10 mg/dL (<10); POTASSIUM 2.8 mmol/L (3.5-5.1); TROPONIN-I < 0.03 ng/mL (<0.030)
[2020-12-29] MEDS ORDERED: K-TAB20 MEQ PO (14:31)
[2020-12-29 18:39] LABS: URINE APPEARANCE HAZY; URINE BILIRUBIN NEGATIVE (NEGATIVE); URINE BLOOD TRACE (NEGATIVE); URINE COLOR YELLOW; URINE GLUCOSE NEGATIVE (NEGATIVE); URINE KETONE NEGATIVE (NEGATIVE); URINE LEUKOCYTE ESTERASE TRACE (NEGATIVE); URINE NITRATE NEGATIVE (NEGATIVE); URINE PROTEIN(semi-quant) NEGATIVE (NEGATIVE); URINE UROBILINOGEN NORMAL (NORMAL)
[2020-12-29 18:43] VITALS: BP 121/75
[2020-12-30] MEDS ORDERED: WELLBUTRIN XL150 M2 PO (13:41)
[2020-12-30] MEDS ORDERED: HYGROTON 2525 MG/TAB PO (13:44)
[2020-12-30] MEDS ORDERED: ENULOSE10 GM/152 PO (13:45)
[2020-12-30] MEDS ORDERED: METOLAZONE5 MG PO (13:46)
[2020-12-30] MEDS ORDERED: INDERAL 10MG10 MG PO (13:46)
[2020-12-30] MEDS ORDERED: PANTOPRAZOLE SO40 MG PO (13:46)
[2020-12-30] MEDS ORDERED: NAPROXEN500 MG PO (13:46)
[2020-12-30] MEDS ORDERED: TORSEMIDE20 M1 PO (13:47)
[2020-12-30] MEDS ORDERED: PRILOSEC 20MG20 MG PO (13:47)
== END 2020-12-29 18:43 | disposition left against medical advice (07) ==
LOC: ED 12:24
PROVIDERS: Physician Assistant
DX: E87.6 Hypokalemia (principal); I50.9 Heart failure, unspecified; I11.0 Hypertensive heart disease with heart failure; N28.9 Disorder of kidney and ureter, unspecified; F17.210 Nicotine dependence, cigarettes, uncomplicated; K21.9 Gastro-esophageal reflux disease without esophagitis; Z79.899 Other long term (current) drug therapy
CPT/HCPCS: J3480; J7040

== ENCOUNTER 2020-12-30 11:47 | Emergency (ER) | payer BC ==
[~2020-12-30 11:47] MED LIST changes: +K-TAB20 MEQ PO
[2020-12-30 12:56] LABS: BASO # 0.02 (0.02-0.10); EOS # 0.22 (0.04-0.40); HEMATOCRIT 28.4 % (42.0-52.0); LYMPH# 1.31 (1.50-4.00); MEAN CELL VOLUME 97 fl (78-100); MEAN CORPUSCULAR HEMOGLOBIN 31 pg (27-31); MEAN CORPUSCULAR HGB CONC 32 g/dL (33-37); MEAN PLATELET VOLUME 11.2 fl (7.4-10.4); MONO # 0.94 (0.20-0.80); NEU # 3.04 (1.40-6.50); PLATELET COUNT 107 K/mm3 (130-400); RED BLOOD COUNT 2.94 M/mm3 (4.20-5.60); RED CELL DISTRIBUTION WIDTH 16.4 % (11.5-14.5); WHITE BLOOD COUNT 5.5 K/mm3 (4.8-10.8)
[2020-12-30 12:59] LABS: ALBUMIN 3.2 g/dL (3.4-4.8); POTASSIUM 3.3 mmol/L (3.5-5.1); SODIUM 141 mmol/L (136-145)
[2020-12-30 13:02] LABS: GLUCOSE 103 mg/dL (75-110); TOTAL PROTEIN 7.8 g/dL (6.2-8.1)
[2020-12-30 13:03] LABS: CARBON DIOXIDE 26 mmol/L (23-31); TOTAL BILIRUBIN 2.5 mg/dL (0.2-1.2)
[2020-12-30 13:07] LABS: AST-SGOT 31 U/L (5-34)
[2020-12-30 13:08] LABS: ALCOHOL IN-HOUSE < 10 mg/dL (<10); ALT/SGPT 13 U/L (0-55)
[2020-12-30] MEDS ORDERED: WELLBUTRIN XL150 M2 PO (13:41)
[2020-12-30] MEDS ORDERED: HYGROTON 2525 MG/TAB PO (13:44)
[2020-12-30] MEDS ORDERED: ENULOSE10 GM/152 PO (13:45)
[2020-12-30] MEDS ORDERED: PANTOPRAZOLE SO40 MG PO (13:46)
[2020-12-30] MEDS ORDERED: INDERAL 10MG10 MG PO (13:46)
[2020-12-30] MEDS ORDERED: NAPROXEN500 MG PO (13:46)
[2020-12-30] MEDS ORDERED: METOLAZONE5 MG PO (13:46)
[2020-12-30] MEDS ORDERED: TORSEMIDE20 M1 PO (13:47)
[2020-12-30] MEDS ORDERED: PRILOSEC 20MG20 MG PO (13:47)
[2020-12-30 13:58] LABS: TROPONIN-I < 0.03 ng/mL (<0.030)
[2020-12-30 17:24] VITALS: BP 147/68
== END 2020-12-30 16:49 | disposition short-term general hospital (02) ==
LOC: ED 11:47
PROVIDERS: Nurse Practitioner Family
DX: N17.9 Acute kidney failure, unspecified (principal); K72.90 Hepatic failure, unspecified without coma; E03.9 Hypothyroidism, unspecified; Z91.14 Patient's other noncompliance with medication regimen; J45.909 Unspecified asthma, uncomplicated; I11.0 Hypertensive heart disease with heart failure; I50.9 Heart failure, unspecified; K21.9 Gastro-esophageal reflux disease without esophagitis; E66.9 Obesity, unspecified; I48.91 Unspecified atrial fibrillation; M19.90 Unspecified osteoarthritis, unspecified site; F17.210 Nicotine dependence, cigarettes, uncomplicated; Z79.1 Long term (current) use of non-steroidal anti-inflammatories (NSAID); Z79.899 Other long term (current) drug therapy
CPT/HCPCS: J7030

== ENCOUNTER → 2021-01-12 | Outpatient (CLI) | payer BC ==
[2020-12-30 17:24] VITALS: BP 147/68
[~2021-01-12] MED LIST changes: +CEPHALEXIN500 M1 PO; +ELIQUIS5 MG PO; +ENULOSE10 GM/152 PO; +HYGROTON 2525 MG/TAB PO; +INDERAL 10MG10 MG PO; +METOLAZONE5 MG PO; +NAPROXEN500 MG PO; +PANTOPRAZOLE SO40 MG PO; +PRILOSEC 20MG20 MG PO; +TORSEMIDE20 M1 PO; +WELLBUTRIN XL150 M2 PO; +[UNRECOGNIZED DRUG - OTHER] PO
[2021-01-12 18:17] LABS: ALBUMIN 3.3 g/dL (3.4-4.8); POTASSIUM 3.1 mmol/L (3.5-5.1)
[2021-01-12 18:18] LABS: CALCIUM 9.2 mg/dL (8.3-10.5)
[2021-01-12 18:19] LABS: TOTAL PROTEIN 8.5 g/dL (6.2-8.1)
[2021-01-12 18:21] LABS: TOTAL BILIRUBIN 1.7 mg/dL (0.2-1.2)
[2021-01-13 17:17] LABS: TESTOSTERONE 122 ng/dL (221-716)
== END ==
LOC: LAB 16:12
PROVIDERS: Family Medicine
DX: K70.30 Alcoholic cirrhosis of liver without ascites (principal); D64.9 Anemia, unspecified; N52.9 Male erectile dysfunction, unspecified

== ENCOUNTER → 2021-01-19 | Outpatient (CLI) | payer BC ==
[2020-12-30 17:24] VITALS: BP 147/68
[2021-01-19 08:52] LABS: BASO # 0.02 (0.02-0.10); EOS # 0.21 (0.04-0.40); EOS % 3.9 % (0.0-4.0); HEMATOCRIT 30.1 % (42.0-52.0); HEMOGLOBIN 9.4 g/dL (13.5-18.0); MEAN CELL VOLUME 96 fl (78-100); MEAN CORPUSCULAR HEMOGLOBIN 30 pg (27-31); MEAN CORPUSCULAR HGB CONC 31 g/dL (33-37); MONO # 0.84 (0.20-0.80); NEU # 2.98 (1.40-6.50); PLATELET COUNT 110 K/mm3 (130-400); RED BLOOD COUNT 3.15 M/mm3 (4.20-5.60); RED CELL DISTRIBUTION WIDTH 16.6 % (11.5-14.5); WHITE BLOOD COUNT 5.4 K/mm3 (4.8-10.8)
[2021-01-19 08:57] LABS: POTASSIUM 3.1 mmol/L (3.5-5.1)
[2021-01-19 08:58] LABS: CALCIUM 8.3 mg/dL (8.3-10.5)
[2021-01-19 08:59] LABS: TOTAL PROTEIN 7.3 g/dL (6.2-8.1)
[2021-01-19 09:01] LABS: TOTAL BILIRUBIN 1.3 mg/dL (0.2-1.2)
[2021-01-19 09:16] LABS: URINE COLOR YELLOW
[2021-01-19 09:17] LABS: URINE APPEARANCE CLOUDY; URINE BILIRUBIN NEGATIVE (NEGATIVE); URINE BLOOD TRACE (NEGATIVE); URINE GLUCOSE NEGATIVE (NEGATIVE); URINE KETONE NEGATIVE (NEGATIVE); URINE LEUKOCYTE ESTERASE 1+ (NEGATIVE); URINE NITRATE NEGATIVE (NEGATIVE); URINE PROTEIN(semi-quant) NEGATIVE (NEGATIVE); URINE UROBILINOGEN NORMAL (NORMAL); URINE WBC 31-50 /hpf (0-3)
[2021-01-19 09:18] LABS: URINE MUCUS PRESENT (NOT PRESENT)
== END ==
LOC: LAB 08:17
PROVIDERS: Family Medicine
DX: K70.30 Alcoholic cirrhosis of liver without ascites (principal); D50.9 Iron deficiency anemia, unspecified; D63.8 Anemia in other chronic diseases classified elsewhere; N39.0 Urinary tract infection, site not specified

== ENCOUNTER → 2021-02-02 | Outpatient (CLI) | payer BC ==
[2021-02-02 08:28] LABS: BASO # 0.01 (0.02-0.10); EOS # 0.13 (0.04-0.40); HEMATOCRIT 31.3 % (42.0-52.0); HEMOGLOBIN 9.9 g/dL (13.5-18.0); LYMPH# 1.13 (1.50-4.00); MEAN CELL VOLUME 99 fl (78-100); MEAN CORPUSCULAR HEMOGLOBIN 31 pg (27-31); MEAN CORPUSCULAR HGB CONC 32 g/dL (33-37); MEAN PLATELET VOLUME 10.6 fl (7.4-10.4); MONO # 0.74 (0.20-0.80); NEU # 2.34 (1.40-6.50); PLATELET COUNT 85 K/mm3 (130-400); RED BLOOD COUNT 3.17 M/mm3 (4.20-5.60); RED CELL DISTRIBUTION WIDTH 20.2 % (11.5-14.5); WHITE BLOOD COUNT 4.4 K/mm3 (4.8-10.8)
[2021-02-02 08:34] LABS: ALBUMIN 2.6 g/dL (3.4-4.8); POTASSIUM 3.3 mmol/L (3.5-5.1)
[2021-02-02 08:35] LABS: CALCIUM 8.2 mg/dL (8.3-10.5)
[2021-02-02 08:36] LABS: TOTAL PROTEIN 6.4 g/dL (6.2-8.1)
[2021-02-02 08:38] LABS: TOTAL BILIRUBIN 1.2 mg/dL (0.2-1.2)
== END ==
LOC: LAB 07:58
PROVIDERS: Family Medicine
DX: Z00.00 Encounter for general adult medical examination without abnormal findings (principal); I50.9 Heart failure, unspecified; K70.30 Alcoholic cirrhosis of liver without ascites; D50.9 Iron deficiency anemia, unspecified; E78.5 Hyperlipidemia, unspecified

== ENCOUNTER → 2021-02-15 | Outpatient (CLI) | payer BC | LOC: RAD 09:17 | DX: K80.20 Calculus of gallbladder without cholecystitis without obstruction (principal); K74.60 Unspecified cirrhosis of liver; R74.01 Elevation of levels of liver transaminase levels ==

== ENCOUNTER → 2021-06-15 | Outpatient (CLI) | payer BC ==
[2021-06-15 11:03] LABS: HEMATOCRIT 37.6 % (42.0-52.0); HEMOGLOBIN 12.6 g/dL (13.5-18.0); MEAN CELL VOLUME 106 fl (78-100); MEAN CORPUSCULAR HEMOGLOBIN 36 pg (27-31); MEAN CORPUSCULAR HGB CONC 34 g/dL (33-37); MEAN PLATELET VOLUME 10.9 fl (7.4-10.4); PLATELET COUNT 83 K/mm3 (130-400); RED BLOOD COUNT 3.54 M/mm3 (4.20-5.60); RED CELL DISTRIBUTION WIDTH 13.8 % (11.5-14.5); WHITE BLOOD COUNT 7.9 K/mm3 (4.8-10.8)
[2021-06-15 11:12] LABS: ALBUMIN 2.9 g/dL (3.4-4.8); POTASSIUM 3.8 mmol/L (3.5-5.1)
[2021-06-15 11:13] LABS: CALCIUM 8.9 mg/dL (8.3-10.5)
[2021-06-15 11:15] LABS: TOTAL PROTEIN 6.5 g/dL (6.2-8.1)
[2021-06-15 11:16] LABS: TOTAL BILIRUBIN 1.4 mg/dL (0.2-1.2)
[2021-06-15 12:29] LABS: BAND 4 % (0-10)
[2021-06-15 12:31] LABS: LYMPHOCYTE 23 % (20-51); MONOCYTE 17 % (3-10); NEUTROPHILS 55 % (42-75)
== END ==
LOC: LAB 10:35
PROVIDERS: Family Medicine
DX: Z00.00 Encounter for general adult medical examination without abnormal findings (principal); E78.5 Hyperlipidemia, unspecified

== ENCOUNTER 2021-06-21 16:06 | Inpatient (IN) | payer BC ==
[~2021-06-21] VITALS: Ht 190.5 cm; Wt 169.6 kg
[~2021-06-21 16:06] MED LIST changes: -CEPHALEXIN500 M1 PO; -ELIQUIS5 MG PO; -[UNRECOGNIZED DRUG - OTHER] PO
[2021-06-21 17:15] VITALS: BP 130/74
[2021-06-21 18:12] VITALS: BP 130/74
[2021-06-21] MEDS ORDERED: POTASSIUM CHLO20 ME4 PO (19:38)
[2021-06-21] MEDS ORDERED: [UNRECOGNIZED DRUG - OTHER] PO (19:47)
[2021-06-21 20:55] LABS: BASO # 0.01 K/mm3 (0.02-0.10); EOS # 0.17 K/mm3 (0.04-0.40); EOS % 2.3 % (0.0-4.0); HEMATOCRIT 32.2 % (42.0-52.0); HEMOGLOBIN 10.9 g/dL (13.5-18.0); LYMPH# 1.36 K/mm3 (1.50-4.00); MEAN CELL VOLUME 106 fl (78-100); MEAN CORPUSCULAR HEMOGLOBIN 36 pg (27-31); MEAN CORPUSCULAR HGB CONC 34 g/dL (33-37); MEAN PLATELET VOLUME 10.6 fl (7.4-10.4); NEU # 4.93 K/mm3 (1.40-6.50); PLATELET COUNT 56 K/mm3 (130-400); RED BLOOD COUNT 3.03 M/mm3 (4.20-5.60); RED CELL DISTRIBUTION WIDTH 13.7 % (11.5-14.5); WHITE BLOOD COUNT 7.5 K/mm3 (4.8-10.8)
[2021-06-21 20:56] LABS: ALBUMIN 2.6 g/dL (3.4-4.8); POTASSIUM 3.1 mmol/L (3.5-5.1)
[2021-06-21 20:57] LABS: CALCIUM 8.8 mg/dL (8.3-10.5)
[2021-06-21 20:58] LABS: TOTAL PROTEIN 5.8 g/dL (6.2-8.1)
[2021-06-21 21:00] LABS: TOTAL BILIRUBIN 2.1 mg/dL (0.2-1.2)
[2021-06-21 21:01] LABS: PARTIAL THROMBOPLASTIN TIME 30.5 SECONDS (21.0-32.0); PROTHROMBIN TIME 14.7 SECONDS (9.0-12.0)
[2021-06-21 22:32] VITALS: BP 104/60
[2021-06-22 02:07] VITALS: BP 105/55
[2021-06-22 05:59] VITALS: BP 112/67
[2021-06-22 09:55] LABS: URINE APPEARANCE HAZY; URINE BILIRUBIN 1+ (NEGATIVE); URINE BLOOD TRACE (NEGATIVE); URINE COLOR DK YELLOW; URINE GLUCOSE NEGATIVE (NEGATIVE); URINE KETONE 1+ (NEGATIVE); URINE LEUKOCYTE ESTERASE TRACE (NEGATIVE); URINE NITRATE NEGATIVE (NEGATIVE); URINE PROTEIN(semi-quant) TRACE mg/dL (NEGATIVE); URINE UROBILINOGEN 1 mg/dL (NORMAL)
[2021-06-22 09:56] LABS: URINE MUCUS PRESENT (NOT PRESENT)
[2021-06-22 10:29] VITALS: BP 127/75
[2021-06-22 12:26] LABS: BASO # 0.01 K/mm3 (0.02-0.10); EOS # 0.16 K/mm3 (0.04-0.40); EOS % 2.8 % (0.0-4.0); LYMPH# 1.41 K/mm3 (1.50-4.00); MEAN CELL VOLUME 107 fl (78-100); MEAN CORPUSCULAR HEMOGLOBIN 36 pg (27-31); MEAN CORPUSCULAR HGB CONC 33 g/dL (33-37); MEAN PLATELET VOLUME 9.6 fl (7.4-10.4); NEU # 3.33 K/mm3 (1.40-6.50); PLATELET COUNT 59 K/mm3 (130-400); RED BLOOD COUNT 3.36 M/mm3 (4.20-5.60); RED CELL DISTRIBUTION WIDTH 13.6 % (11.5-14.5); WHITE BLOOD COUNT 5.7 K/mm3 (4.8-10.8)
[2021-06-22 12:35] LABS: ALBUMIN 2.8 g/dL (3.4-4.8); POTASSIUM 3.6 mmol/L (3.5-5.1)
[2021-06-22 12:36] LABS: CALCIUM 8.9 mg/dL (8.3-10.5)
[2021-06-22 12:37] LABS: TOTAL PROTEIN 6.7 g/dL (6.2-8.1)
[2021-06-22 12:39] LABS: PROTHROMBIN TIME 14.8 SECONDS (9.0-12.0); TOTAL BILIRUBIN 2.2 mg/dL (0.2-1.2)
[2021-06-22 14:09] VITALS: BP 133/78
[2021-06-22 18:25] VITALS: BP 136/82
[2021-06-22 22:30] VITALS: BP 146/81
[2021-06-23 02:28] VITALS: BP 110/66
[2021-06-23 05:52] VITALS: BP 133/70
[2021-06-23 08:09] LABS: POTASSIUM 3.8 mmol/L (3.5-5.1)
[2021-06-23 08:10] LABS: CALCIUM 8.4 mg/dL (8.3-10.5)
[2021-06-23 08:44] LABS: BASO # 0.01 K/mm3 (0.02-0.10); EOS # 0.17 K/mm3 (0.04-0.40); EOS % 3.8 % (0.0-4.0); HEMATOCRIT 32.8 % (42.0-52.0); HEMOGLOBIN 10.9 g/dL (13.5-18.0); LYMPH# 1.13 K/mm3 (1.50-4.00); MEAN CELL VOLUME 108 fl (78-100); MEAN CORPUSCULAR HEMOGLOBIN 36 pg (27-31); MEAN CORPUSCULAR HGB CONC 33 g/dL (33-37); MEAN PLATELET VOLUME 10.9 fl (7.4-10.4); MONO # 0.74 K/mm3 (0.20-0.80); NEU # 2.36 K/mm3 (1.40-6.50); PLATELET COUNT 60 K/mm3 (130-400); RED BLOOD COUNT 3.04 M/mm3 (4.20-5.60); RED CELL DISTRIBUTION WIDTH 13.6 % (11.5-14.5); WHITE BLOOD COUNT 4.4 K/mm3 (4.8-10.8)
[2021-06-23 09:53] VITALS: BP 136/73
[2021-06-23 10:07] LABS: PROTHROMBIN TIME 13.8 SECONDS (9.0-12.0)
[2021-06-23] MEDS ORDERED: ENULOSE10 GM/152 PO (10:14)
[2021-06-23 14:09] VITALS: BP 150/72
[2021-06-23 18:26] VITALS: BP 159/68
[2021-06-23 22:16] VITALS: BP 153/87
[2021-06-24 02:42] VITALS: BP 137/72
[2021-06-24 05:48] VITALS: BP 143/80
[2021-06-24 08:27] LABS: PROTHROMBIN TIME 13.6 SECONDS (9.0-12.0)
[2021-06-24] MEDS ORDERED: ELIQUIS5 MG PO (09:12)
[2021-06-24] MEDS ORDERED: CEPHALEXIN500 M1 PO (09:13)
== END 2021-06-24 09:27 | disposition home or self-care (01) | DRG 300 ==
LOC: ED 16:06 → EDSTATUS 16:37 → MED/SURG 16:50
PROVIDERS: Physician Assistant; ADMIT Nurse Practitioner Family
DX: I82.4Z1 Acute embolism and thrombosis of unspecified deep veins of right distal lower extremity (principal); Z68.42 Body mass index [BMI] 45.0-49.9, adult; L03.115 Cellulitis of right lower limb; I48.91 Unspecified atrial fibrillation; N28.9 Disorder of kidney and ureter, unspecified; E87.6 Hypokalemia; K70.30 Alcoholic cirrhosis of liver without ascites; F10.10 Alcohol abuse, uncomplicated; E66.9 Obesity, unspecified; F17.210 Nicotine dependence, cigarettes, uncomplicated; Z88.8 Allergy status to other drugs, medicaments and biological substances
CPT/HCPCS: J0696; J1650

== ENCOUNTER → 2021-06-21 | Outpatient (CLI) | payer BC | LOC: RAD 13:00 → VAS 13:03 | DX: M79.661 Pain in right lower leg (principal) ==

== ENCOUNTER → 2021-09-07 | Outpatient (CLI) | payer OTHER ==
[~2021-09-07] MED LIST changes: +CEPHALEXIN500 M1 PO; +ELIQUIS5 MG PO; +[UNRECOGNIZED DRUG - OTHER] PO
== END ==
LOC: VAS 10:08
DX: M79.605 Pain in left leg (principal)

== ENCOUNTER 2021-09-14 15:25 | Inpatient (IN) | payer OTHER ==
[~2021-09-14] VITALS: Ht 190.5 cm; Wt 169.5 kg
[2021-09-14] MEDS ORDERED: ADIPEX-P37.5 M2 PO (15:56)
[2021-09-14] MEDS ORDERED: NAPROXEN500 MG PO (16:30)
[2021-09-14 17:25] LABS: HEMOGLOBIN 9.8 g/dL (13.5-18.0); MEAN CELL VOLUME 101 fl (78-100); MEAN CORPUSCULAR HEMOGLOBIN 34 pg (27-31); MEAN CORPUSCULAR HGB CONC 34 g/dL (33-37); PLATELET COUNT 87 K/mm3 (130-400); RED BLOOD COUNT 2.87 M/mm3 (4.20-5.60); RED CELL DISTRIBUTION WIDTH 14.4 % (11.5-14.5); WHITE BLOOD COUNT 4.8 K/mm3 (4.8-10.8)
[2021-09-14 17:32] LABS: ALBUMIN 2.7 g/dL (3.4-4.8); POTASSIUM 3.3 mmol/L (3.5-5.1)
[2021-09-14 17:33] LABS: CALCIUM 8.5 mg/dL (8.3-10.5)
[2021-09-14 17:34] LABS: TOTAL PROTEIN 6.3 g/dL (6.2-8.1)
[2021-09-14 17:42] VITALS: BP 145/83
[2021-09-14 18:57] LABS: LYMPHOCYTE 24 % (20-51); MONOCYTE 14 % (3-10); NEUTROPHILS 59 % (42-75)
[2021-09-14 18:58] LABS: HYPOCHROMIA 1+; POLYCHROMASIA 1+
[2021-09-14 20:01] LABS: URINE APPEARANCE HAZY; URINE BILIRUBIN NEGATIVE (NEGATIVE); URINE BLOOD NEGATIVE (NEGATIVE); URINE COLOR YELLOW; URINE GLUCOSE NEGATIVE (NEGATIVE); URINE KETONE NEGATIVE (NEGATIVE); URINE LEUKOCYTE ESTERASE NEGATIVE (NEGATIVE); URINE NITRATE NEGATIVE (NEGATIVE); URINE PROTEIN(semi-quant) TRACE (NEGATIVE); URINE UROBILINOGEN NORMAL (NORMAL)
[2021-09-14 21:20] VITALS: BP 138/74
[2021-09-15 02:00] VITALS: BP 146/64
[2021-09-15 05:59] VITALS: BP 127/73
[2021-09-15 07:17] LABS: BASO # 0.02 K/mm3 (0.02-0.10); EOS # 0.19 K/mm3 (0.04-0.40); EOS % 4.6 % (0.0-4.0); HEMATOCRIT 30.6 % (42.0-52.0); HEMOGLOBIN 10.3 g/dL (13.5-18.0); LYMPH# 0.85 K/mm3 (1.50-4.00); MEAN CELL VOLUME 102 fl (78-100); MEAN CORPUSCULAR HEMOGLOBIN 34 pg (27-31); MEAN CORPUSCULAR HGB CONC 34 g/dL (33-37); MEAN PLATELET VOLUME 9.9 fl (7.4-10.4); MONO # 0.66 K/mm3 (0.20-0.80); NEU # 2.38 K/mm3 (1.40-6.50); PLATELET COUNT 89 K/mm3 (130-400); RED BLOOD COUNT 2.99 M/mm3 (4.20-5.60); RED CELL DISTRIBUTION WIDTH 14.6 % (11.5-14.5); WHITE BLOOD COUNT 4.1 K/mm3 (4.8-10.8)
[2021-09-15 07:20] LABS: POTASSIUM 3.3 mmol/L (3.5-5.1)
[2021-09-15 07:21] LABS: CALCIUM 8.3 mg/dL (8.3-10.5)
[2021-09-15 10:40] VITALS: BP 156/99
[2021-09-15 14:20] VITALS: BP 155/81
[2021-09-15 18:17] VITALS: BP 165/86
[2021-09-16] VITALS (7 sets, daily range): BP systolic 125–155; BP diastolic 76–91
[2021-09-16 07:19] LABS: BASO # 0.02 K/mm3 (0.02-0.10); EOS # 0.15 K/mm3 (0.04-0.40); HEMATOCRIT 30.1 % (42.0-52.0); LYMPH# 1.04 K/mm3 (1.50-4.00); MEAN CELL VOLUME 103 fl (78-100); MEAN CORPUSCULAR HEMOGLOBIN 34 pg (27-31); MEAN CORPUSCULAR HGB CONC 33 g/dL (33-37); MEAN PLATELET VOLUME 9.9 fl (7.4-10.4); MONO # 0.71 K/mm3 (0.20-0.80); NEU # 3.11 K/mm3 (1.40-6.50); PLATELET COUNT 104 K/mm3 (130-400); RED BLOOD COUNT 2.93 M/mm3 (4.20-5.60); RED CELL DISTRIBUTION WIDTH 14.5 % (11.5-14.5)
[2021-09-16 07:35] LABS: ALBUMIN 2.6 g/dL (3.4-4.8)
[2021-09-16 07:36] LABS: POTASSIUM 3.5 mmol/L (3.5-5.1)
[2021-09-16 07:37] LABS: CALCIUM 8.4 mg/dL (8.3-10.5)
[2021-09-16 07:38] LABS: TOTAL PROTEIN 6.1 g/dL (6.2-8.1)
[2021-09-16 07:40] LABS: TOTAL BILIRUBIN 1.2 mg/dL (0.2-1.2)
[2021-09-17 01:46] VITALS: BP 146/78
[2021-09-17 06:10] VITALS: BP 142/86
[2021-09-17 06:44] LABS: BASO # 0.02 K/mm3 (0.02-0.10); EOS # 0.26 K/mm3 (0.04-0.40); EOS % 4.1 % (0.0-4.0); HEMATOCRIT 33.7 % (42.0-52.0); HEMOGLOBIN 11.5 g/dL (13.5-18.0); LYMPH# 1.27 K/mm3 (1.50-4.00); MEAN CELL VOLUME 102 fl (78-100); MEAN CORPUSCULAR HEMOGLOBIN 35 pg (27-31); MEAN CORPUSCULAR HGB CONC 34 g/dL (33-37); MEAN PLATELET VOLUME 9.7 fl (7.4-10.4); MONO # 0.75 K/mm3 (0.20-0.80); NEU # 4.07 K/mm3 (1.40-6.50); PLATELET COUNT 117 K/mm3 (130-400); RED CELL DISTRIBUTION WIDTH 14.8 % (11.5-14.5); WHITE BLOOD COUNT 6.4 K/mm3 (4.8-10.8)
[2021-09-17 06:48] LABS: POTASSIUM 3.6 mmol/L (3.5-5.1)
[2021-09-17 10:11] VITALS: BP 128/68
[2021-09-17 14:05] VITALS: BP 148/90
[2021-09-17] MEDS ORDERED: TORSEMIDE20 M1 PO (14:21)
[2021-09-17] MEDS ORDERED: ENULOSE10 GM/152 PO (20:11)
== END 2021-09-17 15:02 | disposition home or self-care (01) | DRG 603 ==
LOC: MED/SURG 15:25
PROVIDERS: Nurse Practitioner; Physician Assistant; ADMIT Family Medicine
DX: L03.116 Cellulitis of left lower limb (principal); Z68.42 Body mass index [BMI] 45.0-49.9, adult; E66.2 Morbid (severe) obesity with alveolar hypoventilation; L03.115 Cellulitis of right lower limb; K70.30 Alcoholic cirrhosis of liver without ascites; K21.9 Gastro-esophageal reflux disease without esophagitis; I10 Essential (primary) hypertension; G47.33 Obstructive sleep apnea (adult) (pediatric); I48.0 Paroxysmal atrial fibrillation; Z20.822 Contact with and (suspected) exposure to COVID-19; E87.6 Hypokalemia; J45.30 Mild persistent asthma, uncomplicated; D50.9 Iron deficiency anemia, unspecified; F17.210 Nicotine dependence, cigarettes, uncomplicated; Z79.01 Long term (current) use of anticoagulants; Z86.718 Personal history of other venous thrombosis and embolism; Z88.8 Allergy status to other drugs, medicaments and biological substances
CPT/HCPCS: J0696; J3370; J7040; J7050

== ENCOUNTER → 2021-09-19 | Outpatient (CLI) | payer OTHER ==
[~2021-09-19] MED LIST changes: +ADIPEX-P37.5 M2 PO
[2021-09-19 08:26] LABS: HEMATOCRIT 35.1 % (42.0-52.0); HEMOGLOBIN 11.8 g/dL (13.5-18.0); MEAN PLATELET VOLUME 9.5 fl (7.4-10.4); RED BLOOD COUNT 3.49 M/mm3 (4.20-5.60); RED CELL DISTRIBUTION WIDTH 14.9 % (11.5-14.5); WHITE BLOOD COUNT 6.6 K/mm3 (4.8-10.8)
[2021-09-19 09:06] LABS: CALCIUM 8.4 mg/dL (8.3-10.5)
== END ==
LOC: LAB 07:22 → AMSURD 07:22
PROVIDERS: Family Medicine
DX: Z01.89 Encounter for other specified special examinations (principal)

== ENCOUNTER → 2021-09-23 | Outpatient (CLI) | payer OTHER ==
[2021-09-23 08:49] LABS: POTASSIUM 3.3 mmol/L (3.5-5.1)
[2021-09-23 08:51] LABS: CALCIUM 8.7 mg/dL (8.3-10.5)
== END ==
LOC: LAB 08:20
PROVIDERS: Family Medicine
DX: L03.116 Cellulitis of left lower limb (principal); I87.2 Venous insufficiency (chronic) (peripheral); I10 Essential (primary) hypertension; K21.9 Gastro-esophageal reflux disease without esophagitis; D50.9 Iron deficiency anemia, unspecified; J45.30 Mild persistent asthma, uncomplicated; E66.01 Morbid (severe) obesity due to excess calories; G47.33 Obstructive sleep apnea (adult) (pediatric); I48.0 Paroxysmal atrial fibrillation; Z72.0 Tobacco use

== ENCOUNTER → 2021-10-21 | Outpatient (CLI) | payer OTHER ==
[2021-10-21 11:04] LABS: POTASSIUM 3.4 mmol/L (3.5-5.1)
[2021-10-21 11:05] LABS: CALCIUM 8.6 mg/dL (8.3-10.5)
== END ==
LOC: LAB 10:39
PROVIDERS: Internal Medicine Cardiovascular Disease
DX: I50.32 Chronic diastolic (congestive) heart failure (principal); I10 Essential (primary) hypertension

== ENCOUNTER → 2022-04-24 | Outpatient (CLI) | payer OTHER ==
[2022-04-24 11:09] LABS: ALBUMIN 3.6 g/dL (3.4-4.8)
[2022-04-24 11:10] LABS: POTASSIUM 3.1 mmol/L (3.5-5.1)
[2022-04-24 11:11] LABS: CALCIUM 9.1 mg/dL (8.3-10.5)
[2022-04-24 11:12] LABS: TOTAL PROTEIN 7.9 g/dL (6.2-8.1)
[2022-04-24 11:14] LABS: TOTAL BILIRUBIN 2.5 mg/dL (0.2-1.2)
== END ==
LOC: LAB 10:45
PROVIDERS: Family Medicine
DX: I48.0 Paroxysmal atrial fibrillation (principal); I86.4 Gastric varices; K70.30 Alcoholic cirrhosis of liver without ascites; J45.30 Mild persistent asthma, uncomplicated; D50.9 Iron deficiency anemia, unspecified; K21.9 Gastro-esophageal reflux disease without esophagitis; E66.01 Morbid (severe) obesity due to excess calories; R73.9 Hyperglycemia, unspecified; I10 Essential (primary) hypertension; J30.9 Allergic rhinitis, unspecified; E29.1 Testicular hypofunction; Z72.0 Tobacco use

== ENCOUNTER → 2022-06-23 | Outpatient (CLI) | payer MEDICARE ==
[~2022-06-23] MED LIST changes: +BUMEX 1MG TA1 MG/TA1 PO; +MOUNJARO5 MG/0.5 M SQ
[2022-06-23 11:44] LABS: BASO # 0.03 K/mm3 (0.02-0.10); EOS # 0.17 K/mm3 (0.04-0.40); EOS % 2.2 % (0.0-4.0); HEMATOCRIT 35.9 % (42.0-52.0); HEMOGLOBIN 11.8 g/dL (13.5-18.0); LYMPH# 1.75 K/mm3 (1.50-4.00); MEAN CELL VOLUME 96 fl (78-100); MEAN CORPUSCULAR HEMOGLOBIN 32 pg (27-31); MEAN CORPUSCULAR HGB CONC 33 g/dL (33-37); MEAN PLATELET VOLUME 10.2 fl (7.4-10.4); MONO # 0.96 K/mm3 (0.20-0.80); NEU # 4.97 K/mm3 (1.40-6.50); PLATELET COUNT 120 K/mm3 (130-400); RED BLOOD COUNT 3.75 M/mm3 (4.20-5.60); RED CELL DISTRIBUTION WIDTH 20.1 % (11.5-14.5); WHITE BLOOD COUNT 7.9 K/mm3 (4.8-10.8)
[2022-06-23 11:51] LABS: ALBUMIN 3.1 g/dL (3.4-4.8)
[2022-06-23 11:53] LABS: CALCIUM 8.7 mg/dL (8.3-10.5)
[2022-06-23 11:54] LABS: TOTAL PROTEIN 6.8 g/dL (6.2-8.1)
[2022-06-23 11:56] LABS: TOTAL BILIRUBIN 2.2 mg/dL (0.2-1.2)
[2022-06-23 12:49] LABS: POTASSIUM 2.9 mmol/L (3.5-5.1)
== END ==
LOC: LAB 11:06
PROVIDERS: Family Medicine
DX: K70.30 Alcoholic cirrhosis of liver without ascites (principal); I10 Essential (primary) hypertension; I86.4 Gastric varices; K21.9 Gastro-esophageal reflux disease without esophagitis; R73.9 Hyperglycemia, unspecified; D50.9 Iron deficiency anemia, unspecified; J45.30 Mild persistent asthma, uncomplicated; E66.01 Morbid (severe) obesity due to excess calories; G47.33 Obstructive sleep apnea (adult) (pediatric); I48.0 Paroxysmal atrial fibrillation; Z72.0 Tobacco use

== ENCOUNTER → 2022-07-05 | Outpatient (CLI) | payer MEDICARE ==
[2022-07-05 08:47] LABS: BASO # 0.03 K/mm3 (0.02-0.10); EOS # 0.29 K/mm3 (0.04-0.40); EOS % 4.2 % (0.0-4.0); HEMATOCRIT 37.5 % (42.0-52.0); HEMOGLOBIN 12.2 g/dL (13.5-18.0); LYMPH# 1.67 K/mm3 (1.50-4.00); MEAN CELL VOLUME 98 fl (78-100); MEAN CORPUSCULAR HEMOGLOBIN 32 pg (27-31); MEAN CORPUSCULAR HGB CONC 33 g/dL (33-37); MEAN PLATELET VOLUME 11.2 fl (7.4-10.4); MONO # 0.82 K/mm3 (0.20-0.80); NEU # 4.06 K/mm3 (1.40-6.50); PLATELET COUNT 129 K/mm3 (130-400); RED BLOOD COUNT 3.83 M/mm3 (4.20-5.60); RED CELL DISTRIBUTION WIDTH 19.6 % (11.5-14.5); WHITE BLOOD COUNT 6.9 K/mm3 (4.8-10.8)
[2022-07-05 08:51] LABS: ALBUMIN 3.1 g/dL (3.4-4.8); POTASSIUM 3.1 mmol/L (3.5-5.1)
[2022-07-05 08:52] LABS: CALCIUM 9.1 mg/dL (8.3-10.5)
[2022-07-05 08:55] LABS: TOTAL BILIRUBIN 2.1 mg/dL (0.2-1.2)
== END ==
LOC: LAB 08:00
PROVIDERS: Family Medicine
DX: I48.0 Paroxysmal atrial fibrillation (principal); K70.30 Alcoholic cirrhosis of liver without ascites; I86.4 Gastric varices; I10 Essential (primary) hypertension; K21.9 Gastro-esophageal reflux disease without esophagitis; R73.9 Hyperglycemia, unspecified; D50.9 Iron deficiency anemia, unspecified; J45.30 Mild persistent asthma, uncomplicated; E66.01 Morbid (severe) obesity due to excess calories; G47.33 Obstructive sleep apnea (adult) (pediatric); Z72.0 Tobacco use

== ENCOUNTER → 2022-09-05 | Outpatient (CLI) | payer MEDICARE ==
[~2022-09-05] MED LIST changes: +ADULT LOW DOSE81 MG PO; +ALDACTONE50 M1 PO; +BETAPACE80 M1 PO; +CARDIZEM CD240 M1 PO; +THIAMINE HCL100 M1 PO
[2022-09-05 10:22] LABS: BASO # 0.02 K/mm3 (0.02-0.10); EOS # 0.13 K/mm3 (0.04-0.40); EOS % 0.7 % (0.0-4.0); HEMATOCRIT 37.3 % (42.0-52.0); HEMOGLOBIN 12.4 g/dL (13.5-18.0); LYMPH# 0.89 K/mm3 (1.50-4.00); MEAN CELL VOLUME 102 fl (78-100); MEAN CORPUSCULAR HEMOGLOBIN 34 pg (27-31); MEAN CORPUSCULAR HGB CONC 33 g/dL (33-37); MEAN PLATELET VOLUME 10.3 fl (7.4-10.4); MONO # 1.26 K/mm3 (0.20-0.80); NEU # 15.83 K/mm3 (1.40-6.50); PLATELET COUNT 101 K/mm3 (130-400); RED BLOOD COUNT 3.65 M/mm3 (4.20-5.60); WHITE BLOOD COUNT 18.2 K/mm3 (4.8-10.8)
[2022-09-05 10:27] LABS: ALBUMIN 2.9 g/dL (3.4-4.8); POTASSIUM 4.6 mmol/L (3.5-5.1)
[2022-09-05 10:28] LABS: CALCIUM 9.6 mg/dL (8.3-10.5)
[2022-09-05 10:31] LABS: TOTAL BILIRUBIN 2.1 mg/dL (0.2-1.2)
[2022-09-05 10:42] LABS: PROTHROMBIN TIME 14.2 SECONDS (9.0-12.0)
== END ==
LOC: LAB 10:01
PROVIDERS: Internal Medicine Gastroenterology
DX: I48.91 Unspecified atrial fibrillation (principal); K70.30 Alcoholic cirrhosis of liver without ascites

== ENCOUNTER 2022-10-15 19:19 | Emergency (ER) | payer MEDICARE ==
[~2022-10-15] VITALS: Ht 193 cm; Wt 145.6 kg
[2022-10-15 19:20] VITALS: BP 103/85
[2022-10-15 20:02] LABS: BASO # 0.04 K/mm3 (0.02-0.10); EOS # 0.18 K/mm3 (0.04-0.40); HEMATOCRIT 34.7 % (42.0-52.0); HEMOGLOBIN 11.3 g/dL (13.5-18.0); LYMPH# 2.08 K/mm3 (1.50-4.00); MEAN CELL VOLUME 105 fl (78-100); MEAN CORPUSCULAR HEMOGLOBIN 34 pg (27-31); MEAN CORPUSCULAR HGB CONC 33 g/dL (33-37); MEAN PLATELET VOLUME 10.6 fl (7.4-10.4); MONO # 0.87 K/mm3 (0.20-0.80); NEU # 5.73 K/mm3 (1.40-6.50); PLATELET COUNT 85 K/mm3 (130-400); RED CELL DISTRIBUTION WIDTH 15.4 % (11.5-14.5); WHITE BLOOD COUNT 8.9 K/mm3 (4.8-10.8)
[2022-10-15 20:13] LABS: ALBUMIN 2.8 g/dL (3.4-4.8); POTASSIUM 3.2 mmol/L (3.5-5.1)
[2022-10-15 20:15] LABS: TOTAL PROTEIN 6.3 g/dL (6.2-8.1)
[2022-10-15 20:17] LABS: TOTAL BILIRUBIN 1.7 mg/dL (0.2-1.2)
[2022-10-15 21:11] LABS: URINE APPEARANCE CLEAR; URINE COLOR YELLOW
[2022-10-15 21:12] LABS: URINE BILIRUBIN NEGATIVE (NEGATIVE); URINE BLOOD TRACE (NEGATIVE); URINE GLUCOSE NEGATIVE (NEGATIVE); URINE KETONE NEGATIVE (NEGATIVE); URINE LEUKOCYTE ESTERASE TRACE (NEGATIVE); URINE NITRATE NEGATIVE (NEGATIVE); URINE PROTEIN(semi-quant) TRACE (NEGATIVE); URINE UROBILINOGEN NORMAL (NORMAL)
[2022-10-15] MEDS ORDERED: MOUNJARO7.5 MG/0.5 SQ (21:32)
[2022-10-15] MEDS ORDERED: METAMUCIL GUMMIES PO (21:34)
== END 2022-10-16 11:26 | disposition home or self-care (01) ==
LOC: ED 19:19
PROVIDERS: Family Medicine
DX: K76.82 Hepatic encephalopathy (principal); K70.30 Alcoholic cirrhosis of liver without ascites; F10.10 Alcohol abuse, uncomplicated

== ENCOUNTER → 2022-12-01 | Outpatient (CLI) | payer MEDICARE ==
[~2022-12-01] MED LIST changes: +METAMUCIL GUMMIES PO; +MOUNJARO7.5 MG/0.5 SQ
[2022-12-01 09:24] LABS: HEMATOCRIT 31.8 % (42.0-52.0); HEMOGLOBIN 10.2 g/dL (13.5-18.0); MEAN PLATELET VOLUME 10.4 fl (7.4-10.4); RED BLOOD COUNT 3.09 M/mm3 (4.20-5.60); RED CELL DISTRIBUTION WIDTH 15.7 % (11.5-14.5); WHITE BLOOD COUNT 4.8 K/mm3 (4.8-10.8)
[2022-12-01 09:28] LABS: CALCIUM 8.8 mg/dL (8.3-10.5)
[2022-12-01 10:45] LABS: POTASSIUM 2.6 mmol/L (3.5-5.1)
== END ==
LOC: LAB 09:04
DX: R94.39 Abnormal result of other cardiovascular function study (principal)

== ENCOUNTER → 2022-12-02 | Outpatient (CLI) | payer MEDICARE ==
[2022-12-02 10:37] LABS: POTASSIUM 3.1 mmol/L (3.5-5.1)
[2022-12-02 10:38] LABS: CALCIUM 8.9 mg/dL (8.3-10.5)
== END ==
LOC: LAB 10:02
PROVIDERS: Internal Medicine Interventional Cardiology
DX: E87.6 Hypokalemia (principal)

== ENCOUNTER → 2023-04-19 | Outpatient (CLI) | payer MEDICARE ==
[2023-04-19 08:02] LABS: POTASSIUM 3.4 mmol/L (3.5-5.1)
[2023-04-19 08:04] LABS: CALCIUM 9.5 mg/dL (8.3-10.5)
[2023-04-19 08:13] LABS: HEMATOCRIT 38.5 % (42.0-52.0); HEMOGLOBIN 12.8 g/dL (13.5-18.0); MEAN PLATELET VOLUME 10.7 fl (7.4-10.4); RED BLOOD COUNT 3.75 M/mm3 (4.20-5.60); RED CELL DISTRIBUTION WIDTH 14.8 % (11.5-14.5); WHITE BLOOD COUNT 4.6 K/mm3 (4.8-10.8)
== END ==
LOC: LAB 07:41
PROVIDERS: Internal Medicine Interventional Cardiology
DX: R60.0 Localized edema (principal)

== ENCOUNTER 2023-05-14 09:25 | Emergency (ER) | payer MEDICARE ==
[~2023-05-14] VITALS: Ht 190.5 cm; Wt 152.7 kg
[2023-05-14] MEDS ORDERED: NORCO 325 MG-51 TA1 PO (11:47)
[2023-05-14 12:21] VITALS: BP 130/83
== END 2023-05-14 12:22 | disposition home or self-care (01) ==
LOC: ED 10:01
DX: M25.551 Pain in right hip (principal); G89.18 Other acute postprocedural pain

== ENCOUNTER → 2023-08-09 | Outpatient (CLI) | payer MEDICARE ==
[~2023-08-09] MED LIST changes: +NORCO 325 MG-51 TA1 PO
== END ==
LOC: RAD 08:53
DX: M25.551 Pain in right hip (principal); Z96.641 Presence of right artificial hip joint

== ENCOUNTER → 2023-09-01 | Outpatient (CLI) | payer MEDICARE | LOC: VAS 07:09 → RAD 07:30 | DX: I48.91 Unspecified atrial fibrillation (principal) ==

== ENCOUNTER → 2023-09-19 | Outpatient (CLI) | payer MEDICARE ==
[2023-09-19 09:49] LABS: BASO # 0.04 K/mm3 (0.02-0.10); EOS # 0.26 K/mm3 (0.04-0.40); EOS % 3.9 % (0.0-4.0); HEMATOCRIT 35.8 % (42.0-52.0); HEMOGLOBIN 12.1 g/dL (13.5-18.0); LYMPH# 1.58 K/mm3 (1.50-4.00); MEAN CELL VOLUME 103 fl (78-100); MEAN CORPUSCULAR HEMOGLOBIN 35 pg (27-31); MEAN CORPUSCULAR HGB CONC 34 g/dL (33-37); MEAN PLATELET VOLUME 9.9 fl (7.4-10.4); NEU # 4.18 K/mm3 (1.40-6.50); PLATELET COUNT 70 K/mm3 (130-400); RED BLOOD COUNT 3.47 M/mm3 (4.20-5.60); RED CELL DISTRIBUTION WIDTH 15.6 % (11.5-14.5); WHITE BLOOD COUNT 6.7 K/mm3 (4.8-10.8)
[2023-09-19 10:36] LABS: CALCIUM 8.7 mg/dL (8.3-10.5)
[2023-09-19 10:37] LABS: TOTAL PROTEIN 5.6 g/dL (6.2-8.1)
[2023-09-19 10:39] LABS: TOTAL BILIRUBIN 1.7 mg/dL (0.2-1.2)
== END ==
LOC: LAB 09:34
PROVIDERS: Nurse Practitioner
DX: R58 Hemorrhage, not elsewhere classified (principal)

== ENCOUNTER → 2023-09-22 | Outpatient (CLI) | payer MEDICARE ==
[2023-09-22 18:33] LABS: FOLATE (FOLIC ACID) 14.7 ng/mL (2.0-20.0)
== END ==
LOC: LAB 07:53
PROVIDERS: Nurse Practitioner
DX: D53.9 Nutritional anemia, unspecified (principal); D69.6 Thrombocytopenia, unspecified

== ENCOUNTER → 2023-10-03 | Outpatient (CLI) | payer MEDICARE | LOC: RAD 08:07 → MAMMO 08:30 | DX: M85.852 Other specified disorders of bone density and structure, left thigh (principal); M48.54XA Collapsed vertebra, not elsewhere classified, thoracic region, initial encounter for fracture ==

== ENCOUNTER → 2023-10-30 | Outpatient (CLI) | payer MEDICARE ==
[2023-10-30 22:27] LABS: HEPATITIS C ANTIBODY Negative (Negative)
[2023-11-01 16:11] LABS: KAPPA LAMBDA RATIO 1.42 (())
== END ==
LOC: LAB 14:15
PROVIDERS: Nurse Practitioner Family
DX: D69.6 Thrombocytopenia, unspecified (principal)

== ENCOUNTER → 2023-11-02 | Outpatient (CLI) | payer MEDICARE ==
[2023-11-02 12:06] LABS: HEMATOCRIT 42.1 % (42.0-52.0); HEMOGLOBIN 13.7 g/dL (13.5-18.0); MEAN PLATELET VOLUME 10.1 fl (7.4-10.4); RED BLOOD COUNT 4.01 M/mm3 (4.20-5.60); RED CELL DISTRIBUTION WIDTH 13.5 % (11.5-14.5); WHITE BLOOD COUNT 5.7 K/mm3 (4.8-10.8)
== END ==
LOC: LAB 11:39
PROVIDERS: Nurse Practitioner Family
DX: D69.6 Thrombocytopenia, unspecified (principal)

== ENCOUNTER → 2023-12-10 | Outpatient (CLI) | payer MEDICARE ==
[2023-12-10 11:40] LABS: BASO # 0.03 K/mm3 (0.02-0.10); EOS # 0.16 K/mm3 (0.04-0.40); EOS % 2.7 % (0.0-4.0); HEMATOCRIT 39.4 % (42.0-52.0); HEMOGLOBIN 12.9 g/dL (13.5-18.0); LYMPH# 1.57 K/mm3 (1.50-4.00); MEAN CELL VOLUME 102 fl (78-100); MEAN CORPUSCULAR HEMOGLOBIN 33 pg (27-31); MEAN CORPUSCULAR HGB CONC 33 g/dL (33-37); MEAN PLATELET VOLUME 9.9 fl (7.4-10.4); MONO # 0.81 K/mm3 (0.20-0.80); NEU # 3.34 K/mm3 (1.40-6.50); RED BLOOD COUNT 3.87 M/mm3 (4.20-5.60); RED CELL DISTRIBUTION WIDTH 13.8 % (11.5-14.5); WHITE BLOOD COUNT 5.9 K/mm3 (4.8-10.8)
[2023-12-10 11:52] LABS: ALBUMIN 2.9 g/dL (3.4-4.8)
[2023-12-10 11:53] LABS: CALCIUM 8.9 mg/dL (8.3-10.5); PLATELET COUNT 70 K/mm3 (130-400)
[2023-12-10 11:55] LABS: TOTAL PROTEIN 5.6 g/dL (6.2-8.1)
[2023-12-10 11:56] LABS: TOTAL BILIRUBIN 0.9 mg/dL (0.2-1.2)
[2023-12-10 12:02] LABS: D-DIMER 1.02 mg/L FEU (0.15-0.50)
== END ==
LOC: LAB 11:24
PROVIDERS: Family Medicine
DX: R60.0 Localized edema (principal)

== ENCOUNTER → 2023-12-13 | Outpatient (CLI) | payer MEDICARE ==
[2023-12-13 18:19] LABS: ALBUMIN 3.1 g/dL (3.4-4.8)
[2023-12-13 18:22] LABS: TOTAL PROTEIN 5.9 g/dL (6.2-8.1)
[2023-12-13 18:23] LABS: TOTAL BILIRUBIN 0.9 mg/dL (0.2-1.2)
== END ==
LOC: LAB 18:01
PROVIDERS: Family Medicine
DX: M79.89 Other specified soft tissue disorders (principal)

== ENCOUNTER → 2024-01-30 | Outpatient (CLI) | payer MEDICARE ==
[2024-01-30 09:18] LABS: BASO # 0.02 K/mm3 (0.02-0.10); EOS # 0.21 K/mm3 (0.04-0.40); EOS % 4.2 % (0.0-4.0); HEMATOCRIT 39.9 % (42.0-52.0); HEMOGLOBIN 13.2 g/dL (13.5-18.0); LYMPH# 1.46 K/mm3 (1.50-4.00); MEAN CELL VOLUME 102 fl (78-100); MEAN CORPUSCULAR HEMOGLOBIN 34 pg (27-31); MEAN CORPUSCULAR HGB CONC 33 g/dL (33-37); MEAN PLATELET VOLUME 10.3 fl (7.4-10.4); MONO # 0.63 K/mm3 (0.20-0.80); NEU # 2.71 K/mm3 (1.40-6.50); RED BLOOD COUNT 3.92 M/mm3 (4.20-5.60); RED CELL DISTRIBUTION WIDTH 14.4 % (11.5-14.5)
[2024-01-30 09:25] LABS: ALBUMIN 3.1 g/dL (3.4-4.8)
[2024-01-30 09:26] LABS: CALCIUM 8.9 mg/dL (8.3-10.5)
[2024-01-30 09:27] LABS: TOTAL PROTEIN 6.1 g/dL (6.2-8.1)
[2024-01-30 09:48] LABS: PLATELET COUNT 72 K/mm3 (130-400)
== END ==
LOC: LAB 09:03
PROVIDERS: Nurse Practitioner Family
DX: D69.6 Thrombocytopenia, unspecified (principal)

== ENCOUNTER → 2024-02-28 | Outpatient (CLI) | payer MEDICARE ==
[2024-02-28 17:03] LABS: HEMATOCRIT 40.8 % (42.0-52.0); HEMOGLOBIN 13.6 g/dL (13.5-18.0); MEAN PLATELET VOLUME 10.5 fl (7.4-10.4); RED BLOOD COUNT 4.05 M/mm3 (4.20-5.60); RED CELL DISTRIBUTION WIDTH 14.3 % (11.5-14.5); WHITE BLOOD COUNT 5.3 K/mm3 (4.8-10.8)
== END ==
LOC: LAB 16:34
PROVIDERS: Anesthesiology Pain Medicine
DX: D69.6 Thrombocytopenia, unspecified (principal)

== ENCOUNTER → 2024-03-24 | Outpatient (CLI) | payer MEDICARE ==
[2024-03-24 09:03] LABS: BASO # 0.02 K/mm3 (0.02-0.10); EOS # 0.25 K/mm3 (0.04-0.40); EOS % 4.7 % (0.0-4.0); HEMATOCRIT 42.2 % (42.0-52.0); LYMPH# 1.45 K/mm3 (1.50-4.00); MEAN CELL VOLUME 101 fl (78-100); MEAN CORPUSCULAR HEMOGLOBIN 34 pg (27-31); MEAN CORPUSCULAR HGB CONC 33 g/dL (33-37); MEAN PLATELET VOLUME 10.1 fl (7.4-10.4); MONO # 0.57 K/mm3 (0.20-0.80); NEU # 2.98 K/mm3 (1.40-6.50); RED BLOOD COUNT 4.17 M/mm3 (4.20-5.60); RED CELL DISTRIBUTION WIDTH 14.4 % (11.5-14.5); WHITE BLOOD COUNT 5.3 K/mm3 (4.8-10.8)
[2024-03-24 10:07] LABS: PLATELET COUNT 69 K/mm3 (130-400)
== END ==
LOC: LAB 08:51
PROVIDERS: Internal Medicine
DX: D69.59 Other secondary thrombocytopenia (principal)

== ENCOUNTER → 2024-03-31 | Outpatient (CLI) | payer MEDICARE ==
[2024-03-31 12:02] LABS: BASO # 0.02 K/mm3 (0.02-0.10); EOS # 0.14 K/mm3 (0.04-0.40); EOS % 2.8 % (0.0-4.0); HEMATOCRIT 41.2 % (42.0-52.0); HEMOGLOBIN 13.6 g/dL (13.5-18.0); LYMPH# 0.99 K/mm3 (1.50-4.00); MEAN CELL VOLUME 101 fl (78-100); MEAN CORPUSCULAR HEMOGLOBIN 33 pg (27-31); MEAN CORPUSCULAR HGB CONC 33 g/dL (33-37); MEAN PLATELET VOLUME 10.1 fl (7.4-10.4); MONO # 0.47 K/mm3 (0.20-0.80); PLATELET COUNT 87 K/mm3 (130-400); RED BLOOD COUNT 4.08 M/mm3 (4.20-5.60); RED CELL DISTRIBUTION WIDTH 14.6 % (11.5-14.5)
[2024-03-31 12:18] LABS: ALBUMIN 3.1 g/dL (3.4-4.8)
[2024-03-31 12:21] LABS: TOTAL PROTEIN 5.9 g/dL (6.2-8.1)
[2024-03-31 12:27] LABS: DIRECT BILIRUBIN 0.4 mg/dL (0.0-0.5)
== END ==
LOC: LAB 11:43
PROVIDERS: Internal Medicine
DX: D69.59 Other secondary thrombocytopenia (principal); I48.19 Other persistent atrial fibrillation

== ENCOUNTER → 2024-04-07 | Outpatient (CLI) | payer MEDICARE ==
[2024-04-07 10:04] LABS: BASO # 0.02 K/mm3 (0.02-0.10); EOS # 0.19 K/mm3 (0.04-0.40); EOS % 3.8 % (0.0-4.0); HEMATOCRIT 40.4 % (42.0-52.0); HEMOGLOBIN 13.5 g/dL (13.5-18.0); LYMPH# 1.05 K/mm3 (1.50-4.00); MEAN CELL VOLUME 101 fl (78-100); MEAN CORPUSCULAR HEMOGLOBIN 34 pg (27-31); MEAN CORPUSCULAR HGB CONC 33 g/dL (33-37); MEAN PLATELET VOLUME 10.2 fl (7.4-10.4); MONO # 0.62 K/mm3 (0.20-0.80); NEU # 3.12 K/mm3 (1.40-6.50); PLATELET COUNT 105 K/mm3 (130-400); RED CELL DISTRIBUTION WIDTH 14.5 % (11.5-14.5)
[2024-04-07 10:19] LABS: ALBUMIN 3.1 g/dL (3.4-4.8)
[2024-04-07 10:22] LABS: TOTAL PROTEIN 6.1 g/dL (6.2-8.1)
[2024-04-07 10:24] LABS: TOTAL BILIRUBIN 0.8 mg/dL (0.2-1.2)
== END ==
LOC: LAB 09:53
PROVIDERS: Internal Medicine Gastroenterology
DX: D69.6 Thrombocytopenia, unspecified (principal)

== ENCOUNTER → 2024-04-08 | Outpatient (CLI) | payer MEDICARE | LOC: RAD 08:24 | DX: K70.30 Alcoholic cirrhosis of liver without ascites (principal); K80.20 Calculus of gallbladder without cholecystitis without obstruction; N28.1 Cyst of kidney, acquired; K76.89 Other specified diseases of liver ==

== ENCOUNTER → 2024-04-14 | Outpatient (CLI) | payer MEDICARE ==
[2024-04-14 12:11] LABS: BASO # 0.03 K/mm3 (0.02-0.10); EOS # 0.16 K/mm3 (0.04-0.40); EOS % 2.6 % (0.0-4.0); HEMATOCRIT 40.9 % (42.0-52.0); HEMOGLOBIN 13.6 g/dL (13.5-18.0); LYMPH# 1.05 K/mm3 (1.50-4.00); MEAN CELL VOLUME 101 fl (78-100); MEAN CORPUSCULAR HEMOGLOBIN 34 pg (27-31); MEAN CORPUSCULAR HGB CONC 33 g/dL (33-37); MEAN PLATELET VOLUME 10.5 fl (7.4-10.4); MONO # 0.49 K/mm3 (0.20-0.80); NEU # 4.38 K/mm3 (1.40-6.50); PLATELET COUNT 190 K/mm3 (130-400); RED BLOOD COUNT 4.06 M/mm3 (4.20-5.60); RED CELL DISTRIBUTION WIDTH 14.4 % (11.5-14.5); WHITE BLOOD COUNT 6.1 K/mm3 (4.8-10.8)
== END ==
LOC: LAB 10:32
PROVIDERS: Nurse Practitioner Family
DX: D69.6 Thrombocytopenia, unspecified (principal)

== ENCOUNTER → 2024-04-21 | Outpatient (CLI) | payer MEDICARE ==
[2024-04-21 08:41] LABS: BASO # 0.02 K/mm3 (0.02-0.10); EOS # 0.25 K/mm3 (0.04-0.40); EOS % 5.1 % (0.0-4.0); HEMATOCRIT 41.3 % (42.0-52.0); HEMOGLOBIN 13.7 g/dL (13.5-18.0); LYMPH# 1.13 K/mm3 (1.50-4.00); MEAN CELL VOLUME 101 fl (78-100); MEAN CORPUSCULAR HEMOGLOBIN 33 pg (27-31); MEAN CORPUSCULAR HGB CONC 33 g/dL (33-37); MEAN PLATELET VOLUME 9.4 fl (7.4-10.4); MONO # 0.56 K/mm3 (0.20-0.80); NEU # 2.95 K/mm3 (1.40-6.50); PLATELET COUNT 225 K/mm3 (130-400); RED BLOOD COUNT 4.11 M/mm3 (4.20-5.60); RED CELL DISTRIBUTION WIDTH 14.2 % (11.5-14.5); WHITE BLOOD COUNT 4.9 K/mm3 (4.8-10.8)
[2024-04-21 08:45] LABS: ALBUMIN 3.2 g/dL (3.4-4.8)
[2024-04-21 08:46] LABS: CALCIUM 9.3 mg/dL (8.3-10.5)
[2024-04-21 08:48] LABS: TOTAL PROTEIN 6.3 g/dL (6.2-8.1)
[2024-04-21 08:49] LABS: TOTAL BILIRUBIN 0.8 mg/dL (0.2-1.2)
== END ==
LOC: LAB 08:21
PROVIDERS: Internal Medicine
DX: D69.6 Thrombocytopenia, unspecified (principal)

== ENCOUNTER → 2024-04-30 | Outpatient (CLI) | payer MEDICARE ==
[2024-04-30 08:55] LABS: BASO # 0.03 K/mm3 (0.02-0.10); EOS # 0.27 K/mm3 (0.04-0.40); HEMATOCRIT 44.3 % (42.0-52.0); HEMOGLOBIN 14.8 g/dL (13.5-18.0); MEAN CELL VOLUME 100 fl (78-100); MEAN CORPUSCULAR HEMOGLOBIN 33 pg (27-31); MEAN CORPUSCULAR HGB CONC 33 g/dL (33-37); MEAN PLATELET VOLUME 9.5 fl (7.4-10.4); MONO # 0.76 K/mm3 (0.20-0.80); PLATELET COUNT 200 K/mm3 (130-400); RED BLOOD COUNT 4.44 M/mm3 (4.20-5.60); RED CELL DISTRIBUTION WIDTH 14.1 % (11.5-14.5); WHITE BLOOD COUNT 6.7 K/mm3 (4.8-10.8)
[2024-04-30 09:40] LABS: ALBUMIN 3.4 g/dL (3.4-4.8)
[2024-04-30 09:41] LABS: CALCIUM 9.3 mg/dL (8.3-10.5); PROTHROMBIN TIME 13.7 SECONDS (9.0-12.0)
[2024-04-30 09:42] LABS: TOTAL PROTEIN 6.7 g/dL (6.2-8.1)
== END ==
LOC: LAB 08:23
PROVIDERS: Nurse Practitioner Primary Care
DX: K70.30 Alcoholic cirrhosis of liver without ascites (principal); K21.9 Gastro-esophageal reflux disease without esophagitis; K80.20 Calculus of gallbladder without cholecystitis without obstruction

== ENCOUNTER → 2024-05-12 | Outpatient (CLI) | payer MEDICARE ==
[2024-05-12 09:01] LABS: BASO # 0.02 K/mm3 (0.02-0.10); EOS # 0.28 K/mm3 (0.04-0.40); EOS % 5.3 % (0.0-4.0); HEMATOCRIT 42.8 % (42.0-52.0); HEMOGLOBIN 14.2 g/dL (13.5-18.0); LYMPH# 1.33 K/mm3 (1.50-4.00); MEAN CELL VOLUME 101 fl (78-100); MEAN CORPUSCULAR HEMOGLOBIN 34 pg (27-31); MEAN CORPUSCULAR HGB CONC 33 g/dL (33-37); MEAN PLATELET VOLUME 10.6 fl (7.4-10.4); MONO # 0.43 K/mm3 (0.20-0.80); NEU # 3.24 K/mm3 (1.40-6.50); RED BLOOD COUNT 4.23 M/mm3 (4.20-5.60); WHITE BLOOD COUNT 5.3 K/mm3 (4.8-10.8)
[2024-05-12 09:11] LABS: ALBUMIN 3.2 g/dL (3.4-4.8)
[2024-05-12 09:14] LABS: TOTAL PROTEIN 6.3 g/dL (6.2-8.1)
[2024-05-12 13:36] LABS: PLATELET COUNT 73 K/mm3 (130-400)
== END ==
LOC: LAB 08:50
PROVIDERS: Internal Medicine
DX: D69.59 Other secondary thrombocytopenia (principal)

== ENCOUNTER → 2024-05-19 | Outpatient (CLI) | payer MEDICARE ==
[2024-05-19 07:48] LABS: HEMATOCRIT 41.9 % (42.0-52.0); MEAN PLATELET VOLUME 10.7 fl (7.4-10.4); RED BLOOD COUNT 4.17 M/mm3 (4.20-5.60); RED CELL DISTRIBUTION WIDTH 13.9 % (11.5-14.5); WHITE BLOOD COUNT 5.2 K/mm3 (4.8-10.8)
== END ==
LOC: LAB 07:38
PROVIDERS: Nurse Practitioner Family
DX: D69.59 Other secondary thrombocytopenia (principal)

== ENCOUNTER → 2024-05-27 | Outpatient (CLI) | payer MEDICARE ==
[2024-05-27 08:30] LABS: BASO # 0.02 K/mm3 (0.02-0.10); EOS # 0.28 K/mm3 (0.04-0.40); HEMATOCRIT 42.2 % (42.0-52.0); HEMOGLOBIN 14.2 g/dL (13.5-18.0); MEAN CELL VOLUME 102 fl (78-100); MEAN CORPUSCULAR HEMOGLOBIN 34 pg (27-31); MEAN CORPUSCULAR HGB CONC 34 g/dL (33-37); MEAN PLATELET VOLUME 10.3 fl (7.4-10.4); MONO # 0.75 K/mm3 (0.20-0.80); NEU # 3.05 K/mm3 (1.40-6.50); PLATELET COUNT 134 K/mm3 (130-400); RED BLOOD COUNT 4.15 M/mm3 (4.20-5.60); RED CELL DISTRIBUTION WIDTH 14.4 % (11.5-14.5); WHITE BLOOD COUNT 5.6 K/mm3 (4.8-10.8)
[2024-05-27 08:32] LABS: ALBUMIN 3.2 g/dL (3.4-4.8)
[2024-05-27 08:33] LABS: CALCIUM 9.3 mg/dL (8.3-10.5)
[2024-05-27 08:35] LABS: TOTAL PROTEIN 6.2 g/dL (6.2-8.1)
[2024-05-27 08:36] LABS: TOTAL BILIRUBIN 0.9 mg/dL (0.2-1.2)
== END ==
LOC: LAB 07:52
PROVIDERS: Nurse Practitioner Family
DX: D69.59 Other secondary thrombocytopenia (principal)

== ENCOUNTER → 2024-06-02 | Outpatient (CLI) | payer MEDICARE ==
[2024-06-02 07:54] LABS: BASO # 0.03 K/mm3 (0.02-0.10); EOS # 0.18 K/mm3 (0.04-0.40); EOS % 3.4 % (0.0-4.0); HEMATOCRIT 41.2 % (42.0-52.0); HEMOGLOBIN 13.8 g/dL (13.5-18.0); LYMPH# 1.28 K/mm3 (1.50-4.00); MEAN CELL VOLUME 101 fl (78-100); MEAN CORPUSCULAR HEMOGLOBIN 34 pg (27-31); MEAN CORPUSCULAR HGB CONC 34 g/dL (33-37); MONO # 0.62 K/mm3 (0.20-0.80); NEU # 3.13 K/mm3 (1.40-6.50); PLATELET COUNT 206 K/mm3 (130-400); RED BLOOD COUNT 4.08 M/mm3 (4.20-5.60); RED CELL DISTRIBUTION WIDTH 14.1 % (11.5-14.5); WHITE BLOOD COUNT 5.3 K/mm3 (4.8-10.8)
== END ==
LOC: LAB 07:39
PROVIDERS: Nurse Practitioner Family
DX: D69.59 Other secondary thrombocytopenia (principal)

== ENCOUNTER → 2024-06-13 | Outpatient (CLI) | payer MEDICARE ==
[2024-06-13 16:58] LABS: HEMATOCRIT 42.3 % (42.0-52.0); MEAN PLATELET VOLUME 9.7 fl (7.4-10.4); RED BLOOD COUNT 4.16 M/mm3 (4.20-5.60); RED CELL DISTRIBUTION WIDTH 13.9 % (11.5-14.5); WHITE BLOOD COUNT 6.1 K/mm3 (4.8-10.8)
== END ==
LOC: LAB 16:38
PROVIDERS: Nurse Practitioner Family
DX: D69.59 Other secondary thrombocytopenia (principal)